=== PATIENT | female | born 1930 | race Caucasian/White ===

== ENCOUNTER 2016-05-28 10:20 | Inpatient (IN) | payer MEDICARE, OTHER ==
[~2016-05-28] VITALS: Ht 147.3 cm; Wt 43.3 kg
[~2016-05-28 10:20] MED LIST: CALC500C71 PO; CAR350T PO; CETI1TAB36 PO; FAM20T PO; LIS20T PO; PRE1T PO; SIMV10TA84 PO
[2016-05-28 10:55] LABS: Basophils # (auto) 0.1 uL; Basophils % (auto) 0.9 % (0.0-2.0); Eosinophils # (auto) 0.1 uL; Eosinophils % (auto) 0.7 % (0.0-7.0); Hematocrit 41.5 % (36.0-46.0); Hemoglobin 13.4 g/dL (12.2-16.2); Lymphocytes # (auto) 0.8 uL; Lymphocytes % (auto) 10.4 % (10.0-50.0); Mean Corpuscular Hemoglobin 29.5 pg (28.0-32.0); Mean Corpuscular Hgb Conc. 32.2 g/dL (32.0-36.0); Mean Corpuscular Volume 91.5 fL (80.0-100.0); Mean Platelet Volume 10.3 fL (7.4-10.4); Monocytes # (auto) 0.6 uL; Monocytes % (auto) 7.7 % (0.0-12.0); Neutrophils % (auto) 80.3 % (37.0-80.0); Platelet Count (auto) 242 10^3/uL (140-450); Red Cell Distribution Width 13.1 % (11.6-16.0); White Blood Cell 7.5 10^3/uL (4.4-10.8)
[2016-05-28 11:19] LABS: Albumin 3.9 g/dL (3.4-5.0); BUN/Creatinine Ratio 16.5; Bilirubin, Total 0.4 mg/dL (0.2-1.0); Magnesium 2.3 mg/dL (1.6-2.6); Potassium 4.9 mmol/L (3.5-5.1); Total Protein 6.8 g/dL (6.4-8.2)
[2016-05-28] MEDS ORDERED: ONDANSETRON HCL 4 MG/2 ML VIAL IV ONE (11:30)
[2016-05-28] MEDS ORDERED: MORPHINE SULF INJ 2 MG/ML SYRINGE 1ML IV ONE (11:30)
[2016-05-28] MEDS: SODIUM CHLORIDE 0.9% 1,000 ML IV SCH (12:34)
[2016-05-28] MEDS ORDERED: LACTULOSE 20Gm/30ML SOLN PO PRN (12:45)
[2016-05-28] MEDS ORDERED: ACETAMINOPHEN 500 MG TAB PO PRN (12:45)
[2016-05-28] MEDS ORDERED: LORazepam 0.5 MG TAB PO PRN (12:45)
[2016-05-28] MEDS ORDERED: MORPHINE SULF INJ 2 MG/ML SYRINGE 1ML IV PRN ×2 (12:45)
[2016-05-28] MEDS ORDERED: TEMAZEPAM 15 MG CAP PO PRN (12:45)
[2016-05-28] MEDS ORDERED: NITROGLYCERIN 0.4 MG SL TAB SL PRN (12:45)
[2016-05-28] MEDS ORDERED: ONDANSETRON HCL 4 MG/2 ML VIAL IV PRN (12:45)
[2016-05-28] MEDS: ENOXAPARIN SOD 30 MG/0.3 ML SYRINGE SC SCH (13:11)
[2016-05-28] MEDS: ASPirin 81 mg TAB PO SCH (13:11)
[2016-05-28] MEDS: HYDROcodone-ACET 5/325MG TAB PO PRN ×2 (13:12→21:12)
[2016-05-28 13:39] LABS: Urine RBC None Seen /hpf (0 - 4)
[2016-05-28 13:48] LABS: Urine Bilirubin Negative (Negative); Urine Blood Negative /uL (Negative); Urine Color Colorless (Yellow); Urine Glucose Normal (Normal); Urine Ketone Negative (Negative); Urine Nitrite Negative (Negative); Urine Squamous Epithelial Cell FEW /hpf (<5); Urine Urobilinogen Normal (Negative)
[2016-05-28 17:40] VITALS: BP 142/72
[2016-05-28] MEDS ORDERED: LORazepam 2MG/ML-1ML VIAL IV PRN (17:45)
[2016-05-28] MEDS ORDERED: MULTTAB99 PO (17:46)
[2016-05-28] MEDS ORDERED: ESOM40CA39 PO (17:46)
[2016-05-28] MEDS ORDERED: ACET500C PO (17:47)
[2016-05-28] MEDS: ATORVASTATIN 20 MG TAB PO SCH (21:12)
[2016-05-28 21:43] VITALS: BP 157/73
[2016-05-29] MEDS: SODIUM CHLORIDE 0.9% 1,000 ML IV SCH ×2 (01:04→03:55)
[2016-05-29] MEDS: HYDROcodone-ACET 5/325MG TAB PO PRN ×2 (03:07→21:11)
[2016-05-29 05:00] VITALS: BP 130/48
[2016-05-29 09:00] VITALS: BP 148/60
[2016-05-29] MEDS ORDERED: DEXTROSE (50%) 50ML SYRG IV PRN (09:30)
[2016-05-29] MEDS: ASPirin 81 mg TAB PO SCH (11:05)
[2016-05-29] MEDS: ENOXAPARIN SOD 30 MG/0.3 ML SYRINGE SC SCH (11:05)
[2016-05-29] MEDS: ACCU-CHEK COMFORT CURVE STRIP VI SCH ×3 (11:30→21:41)
[2016-05-29] MEDS: InsuLIN REG 1unit/0.01ml Soln (100units/ml) SC SCH ×3 (11:30→21:41)
[2016-05-29] MEDS ORDERED: MULTIPLE VITAMIN TAB PO SCH (12:00)
[2016-05-29 12:14] VITALS: BP 190/78
[2016-05-29] MEDS: LISINOPRIL 20 MG TAB PO SCH ×2 (12:17→21:11)
[2016-05-29] MEDS: cloNIDine HCL 0.1 MG TAB PO PRN (12:18)
[2016-05-29 16:25] LABS: Temperature: 22.1 C (20.0-25.0)
[2016-05-29 17:12] VITALS: BP 135/59
[2016-05-29] MEDS: ATORVASTATIN 20 MG TAB PO SCH (21:10)
[2016-05-29 22:00] VITALS: BP 146/62
[2016-05-30] MEDS: SODIUM CHLORIDE 0.9% 1,000 ML IV SCH (04:00)
[2016-05-30 05:55] VITALS: BP 152/62
[2016-05-30] MEDS: ACCU-CHEK COMFORT CURVE STRIP VI SCH (06:13)
[2016-05-30] MEDS: InsuLIN REG 1unit/0.01ml Soln (100units/ml) SC SCH (06:14)
[2016-05-30 06:17] LABS: Basophils # (auto) 0 uL; Basophils % (auto) 0.4 % (0.0-2.0); Eosinophils # (auto) 0.3 uL; Eosinophils % (auto) 4.9 % (0.0-7.0); Hematocrit 33.2 % (36.0-46.0); Hemoglobin 10.8 g/dL (12.2-16.2); Lymphocytes # (auto) 1.1 uL; Lymphocytes % (auto) 16.5 % (10.0-50.0); Mean Corpuscular Hgb Conc. 32.6 g/dL (32.0-36.0); Mean Corpuscular Volume 91.8 fL (80.0-100.0); Mean Platelet Volume 10.5 fL (7.4-10.4); Monocytes # (auto) 0.8 uL; Monocytes % (auto) 11.6 % (0.0-12.0); Neutrophils # (auto) 4.3 uL; Neutrophils % (auto) 66.6 % (37.0-80.0); Platelet Count (auto) 174 10^3/uL (140-450); Red Cell Distribution Width 13.4 % (11.6-16.0); White Blood Cell 6.5 10^3/uL (4.4-10.8)
[2016-05-30 06:45] LABS: Albumin 2.9 g/dL (3.4-5.0); BUN/Creatinine Ratio 20.6; Bilirubin, Total 0.4 mg/dL (0.2-1.0); Calcium 8.5 mg/dL (8.5-10.1); Potassium 4.6 mmol/L (3.5-5.1); Total Protein 5.5 g/dL (6.4-8.2)
[2016-05-30] MEDS: ASPirin 81 mg TAB PO SCH (10:35)
[2016-05-30] MEDS: LISINOPRIL 20 MG TAB PO SCH (10:35)
[2016-05-30] MEDS: ENOXAPARIN SOD 30 MG/0.3 ML SYRINGE SC SCH (10:35)
[2016-05-30 11:18] VITALS: BP 142/72
[2016-05-30] MEDS: cloNIDine HCL 0.1 MG TAB PO PRN (11:34)
[2016-05-31 06:06] LABS: Thyroxine (T4) 5.8 ug/dL (4.5-12.0)
== END 2016-05-30 12:41 | disposition home or self-care (01) | DRG 69 ==
LOC: EDBD 10:20 → ER 10:24 → TELE 10:25 → TELE-CENTR 16:02
PROVIDERS: ADMIT Internal Medicine; ATTEND Internal Medicine
DX: G45.9 Transient cerebral ischemic attack, unspecified (principal); E43 Unspecified severe protein-calorie malnutrition; I25.10 Atherosclerotic heart disease of native coronary artery without angina pectoris; K21.9 Gastro-esophageal reflux disease without esophagitis; S40.011A Contusion of right shoulder, initial encounter; D63.8 Anemia in other chronic diseases classified elsewhere; E11.22 Type 2 diabetes mellitus with diabetic chronic kidney disease; E78.5 Hyperlipidemia, unspecified; E03.9 Hypothyroidism, unspecified; I73.9 Peripheral vascular disease, unspecified; J44.9 Chronic obstructive pulmonary disease, unspecified; N18.3 Chronic kidney disease, stage 3 (moderate); S09.90XA Unspecified injury of head, initial encounter; W19.XXXA Unspecified fall, initial encounter; I12.9 Hypertensive chronic kidney disease with stage 1 through stage 4 chronic kidney disease, or unspecified chronic kidney disease; Y99.8 Other external cause status; Z88.1 Allergy status to other antibiotic agents; Z79.899 Other long term (current) drug therapy; I25.2 Old myocardial infarction; Z80.0 Family history of malignant neoplasm of digestive organs; Z82.3 Family history of stroke; Z82.49 Family history of ischemic heart disease and other diseases of the circulatory system; Z85.038 Personal history of other malignant neoplasm of large intestine; Y93.89 Activity, other specified; Y92.89 Other specified places as the place of occurrence of the external cause; Z98.49 Cataract extraction status, unspecified eye; Z98.890 Other specified postprocedural states; Z68.20 Body mass index [BMI] 20.0-20.9, adult; Z88.0 Allergy status to penicillin
CPT/HCPCS: 36415; 70450; 70551; 72131; 80053; 81001; 82550; 82607; 82746; 82962; 83036; 83735; 84443; 84484; 85025; 85049; 85652; 93005; 93306; 93886; 94761; 95819; 96374; 96375; J2405

== ENCOUNTER → 2016-06-12 | Outpatient (CLI) | payer MEDICARE, OTHER ==
[~2016-06-12] MED LIST changes: +ACET500C PO; +CETI5SOL4 PO; +ESOM40CA39 PO; -FAM20T PO; +MULTTAB99 PO
[2016-06-12 09:15] VITALS: BP 135/61
[2016-06-12 09:45] VITALS: BP 137/47
[2016-06-12 12:29] LABS: Basophils # (auto) 0 uL; Basophils % (auto) 0.3 % (0.0-2.0); Eosinophils # (auto) 0 uL; Eosinophils % (auto) 0.5 % (0.0-7.0); Hematocrit 40.5 % (36.0-46.0); Hemoglobin 12.7 g/dL (12.2-16.2); Lymphocytes # (auto) 0.8 uL; Lymphocytes % (auto) 11.6 % (10.0-50.0); Mean Corpuscular Hemoglobin 28.9 pg (28.0-32.0); Mean Corpuscular Hgb Conc. 31.4 g/dL (32.0-36.0); Mean Corpuscular Volume 92.1 fL (80.0-100.0); Mean Platelet Volume 10.5 fL (7.4-10.4); Monocytes # (auto) 0.5 uL; Monocytes % (auto) 8.2 % (0.0-12.0); Neutrophils # (auto) 5.2 uL; Neutrophils % (auto) 79.4 % (37.0-80.0); Platelet Count (auto) 284 10^3/uL (140-450); Red Cell Distribution Width 13.4 % (11.6-16.0); White Blood Cell 6.6 10^3/uL (4.4-10.8)
[2016-06-12 12:43] LABS: BUN/Creatinine Ratio 20.9; Potassium 4.1 mmol/L (3.5-5.1)
[2016-06-12 13:13] LABS: INR 1.04 (0.9-1.15); Partial Thromboplastin Time 26.1 sec (22.64-33.71); Prothrombin Time 10.7 sec (9.37-12.3)
== END | disposition home or self-care (01) ==
LOC: Rad HDHVI 09:01
PROVIDERS: ATTEND Internal Medicine Cardiovascular Disease
DX: I10 Essential (primary) hypertension (principal); D64.9 Anemia, unspecified; R79.1 Abnormal coagulation profile
CPT/HCPCS: 36415; 71020; 80048; 85025; 85610; 85730; 93005; G0463

== ENCOUNTER 2016-07-03 11:29 | Emergency (ER) | payer MEDICARE, OTHER ==
[~2016-07-03] VITALS: Ht 147.3 cm; Wt 41.0 kg
[~2016-07-03 11:29] MED LIST changes: -CETI1TAB36 PO
[2016-07-03 15:10] LABS: Urine RBC 25161 /hpf (0 - 4)
[2016-07-03 15:24] LABS: Urine Color Red (Yellow)
[2016-07-03 16:48] LABS: Urine Bilirubin Negative (Negative); Urine Color Red (Yellow); Urine Glucose Normal (Normal); Urine Ketone TRACE (Negative); Urine Nitrite Negative (Negative); Urine RBC 1088 /hpf (0 - 4); Urine Urobilinogen Normal (Negative); Urine WBC Clumps PRESENT /hpf (None Seen); Urine pH 6.5 (5.0-8.0)
[2016-07-03 17:00] LABS: Urine Blood 3+ /uL (Negative)
[2016-07-03] MEDS ORDERED: ACETAMINOPHEN 325 MG TAB PO ONE (17:15)
[2016-07-03 17:23] VITALS: BP 153/63
== END 2016-07-03 17:41 | disposition home or self-care (01) ==
LOC: ER 11:33
DX: N39.0 Urinary tract infection, site not specified (principal); E78.5 Hyperlipidemia, unspecified; I25.2 Old myocardial infarction; I10 Essential (primary) hypertension; K21.9 Gastro-esophageal reflux disease without esophagitis; I48.91 Unspecified atrial fibrillation; I20.9 Angina pectoris, unspecified; Z86.73 Personal history of transient ischemic attack (TIA), and cerebral infarction without residual deficits; Z88.0 Allergy status to penicillin; Z88.1 Allergy status to other antibiotic agents
CPT/HCPCS: 81001

== ENCOUNTER → 2016-07-05 | Outpatient (CLI) | payer MEDICARE, OTHER | END | disposition home or self-care (01) | LOC: LAB 12:14 | PROVIDERS: ATTEND Internal Medicine | DX: E03.9 Hypothyroidism, unspecified (principal) | CPT/HCPCS: 36415; 84439; 84443; 84480 ==

== ENCOUNTER → 2016-07-26 | Outpatient (CLI) | payer MEDICARE, OTHER | END | disposition home or self-care (01) | LOC: Rad HDHVI 09:04 | PROVIDERS: ATTEND Internal Medicine Cardiovascular Disease | DX: I10 Essential (primary) hypertension (principal); I73.9 Peripheral vascular disease, unspecified | CPT/HCPCS: 93926 ==

== ENCOUNTER → 2016-09-06 | Outpatient (CLI) | payer MEDICARE ==
[~2016-09-06] VITALS: Ht 147.3 cm; Wt 41.3 kg
[~2016-09-06] MED LIST changes: +CLOP75TA41 PO; +PANT40TA2 PO
[2016-09-06 09:20] VITALS: BP 157/62
[2016-09-06 09:50] VITALS: BP 154/65
[2016-09-06 12:24] LABS: Basophils # (auto) 0 uL; Basophils % (auto) 0.2 % (0.0-2.0); Eosinophils # (auto) 0 uL; Eosinophils % (auto) 0.7 % (0.0-7.0); Hematocrit 38.6 % (36.0-46.0); Hemoglobin 12.5 g/dL (12.2-16.2); Lymphocytes # (auto) 0.7 uL; Lymphocytes % (auto) 9.8 % (10.0-50.0); Mean Corpuscular Hemoglobin 29.3 pg (28.0-32.0); Mean Corpuscular Hgb Conc. 32.5 g/dL (32.0-36.0); Mean Corpuscular Volume 90.1 fL (80.0-100.0); Mean Platelet Volume 10.3 fL (7.4-10.4); Monocytes # (auto) 0.6 uL; Monocytes % (auto) 9.3 % (0.0-12.0); Neutrophils # (auto) 5.4 uL; Platelet Count (auto) 258 10^3/uL (140-450); Red Cell Distribution Width 13.9 % (11.6-16.0); White Blood Cell 6.8 10^3/uL (4.4-10.8)
[2016-09-06 12:36] LABS: INR 0.99 (0.9-1.15); Partial Thromboplastin Time 27.1 sec (22.64-33.71); Prothrombin Time 10.7 sec (9.37-12.3)
[2016-09-06 12:53] LABS: BUN/Creatinine Ratio 24.5; Calcium 8.5 mg/dL (8.5-10.1); Potassium 4.2 mmol/L (3.5-5.1)
== END | disposition home or self-care (01) ==
LOC: Rad HDHVI 09:07
PROVIDERS: ATTEND Internal Medicine Cardiovascular Disease
DX: I10 Essential (primary) hypertension (principal); D64.9 Anemia, unspecified; R79.1 Abnormal coagulation profile; Z01.812 Encounter for preprocedural laboratory examination
CPT/HCPCS: 36415; 71020; 80048; 85025; 85610; 85730; 93005; G0463

== ENCOUNTER → 2016-09-26 | Outpatient (CLI) | payer MEDICARE ==
[~2016-09-26] MED LIST changes: -CAR350T PO; -ESOM40CA39 PO
== END | disposition home or self-care (01) ==
LOC: Rad HDHVI 13:29
PROVIDERS: ATTEND Internal Medicine Cardiovascular Disease
DX: I73.9 Peripheral vascular disease, unspecified (principal); I99.8 Other disorder of circulatory system
CPT/HCPCS: 93926

== ENCOUNTER → 2016-12-11 | Outpatient (CLI) | payer MEDICARE ==
[~2016-12-11] MED LIST changes: +CETI1SYP6 PO; -CETI5SOL4 PO
[2016-12-11 12:54] LABS: Urine Bilirubin Negative (Negative); Urine Blood Negative /uL (Negative); Urine Color Yellow (Yellow); Urine Glucose Normal (Normal); Urine Ketone Negative (Negative); Urine Nitrite Negative (Negative); Urine RBC 1 /hpf (0 - 4); Urine Squamous Epithelial Cell FEW /hpf (<5); Urine Urobilinogen Normal (Negative); Urine pH 5.5 (5.0-8.0)
== END | disposition home or self-care (01) ==
LOC: LAB 12:23
PROVIDERS: ATTEND Internal Medicine
DX: R31.9 Hematuria, unspecified (principal); Z87.440 Personal history of urinary (tract) infections
CPT/HCPCS: 81001; 87086

== ENCOUNTER → 2017-04-24 | Outpatient (CLI) | payer MEDICARE ==
[2017-04-24 11:10] LABS: Basophils # (auto) 0 uL; Basophils % (auto) 0.5 % (0.0-2.0); Eosinophils # (auto) 0.1 uL; Eosinophils % (auto) 0.7 % (0.0-7.0); Hematocrit 40.5 % (36.0-46.0); Hemoglobin 13.3 g/dL (12.2-16.2); Lymphocytes # (auto) 0.8 uL; Lymphocytes % (auto) 11.5 % (10.0-50.0); Mean Corpuscular Hgb Conc. 32.8 g/dL (32.0-36.0); Mean Corpuscular Volume 91.5 fL (80.0-100.0); Mean Platelet Volume 9.4 fL (6.9-10.8); Monocytes # (auto) 0.7 uL; Monocytes % (auto) 9.3 % (0.0-12.0); Neutrophils # (auto) 5.6 uL; Platelet Count (auto) 233 10^3/uL (140-450); Red Cell Distribution Width 13.7 % (11.8-14.3); White Blood Cell 7.2 10^3/uL (4.4-10.8)
[2017-04-24 12:32] LABS: Albumin 3.9 g/dL (3.4-5.0); BUN/Creatinine Ratio 27.4; Bilirubin, Total 0.5 mg/dL (0.2-1.0); Potassium 4.3 mmol/L (3.5-5.1); Total Protein 7.1 g/dL (6.4-8.2)
== END | disposition home or self-care (01) ==
LOC: LAB 10:46
DX: I10 Essential (primary) hypertension (principal); M06.9 Rheumatoid arthritis, unspecified; E78.00 Pure hypercholesterolemia, unspecified; D64.9 Anemia, unspecified; I70.0 Atherosclerosis of aorta; Z79.899 Other long term (current) drug therapy
CPT/HCPCS: 36415; 80053; 80061; 82306; 84443; 85025; 85652

== ENCOUNTER → 2017-05-31 | Outpatient (CLI) | payer MEDICARE ==
[~2017-05-31] VITALS: Ht 148.6 cm; Wt 39.0 kg
[~2017-05-31] MED LIST changes: +ADENOSINE 33 MG in GIVE UN-DILUTED 0 ML IV ONE; +ADENOSINE 90 MG/30 ML INJ IV ONE
== END | disposition home or self-care (01) ==
LOC: Rad HDHVI 13:05
PROVIDERS: ATTEND Internal Medicine Cardiovascular Disease
DX: J44.9 Chronic obstructive pulmonary disease, unspecified (principal); M25.462 Effusion, left knee
CPT/HCPCS: 78452; 93005; 93306; 96374; 96375; A9500; J0153

== ENCOUNTER → 2017-09-14 | Outpatient (CLI) | payer MEDICARE ==
[~2017-09-14] MED LIST changes: -ADENOSINE 33 MG in GIVE UN-DILUTED 0 ML IV ONE; -ADENOSINE 90 MG/30 ML INJ IV ONE
[2017-09-14 11:30] LABS: Basophils # (auto) 0 uL; Basophils % (auto) 0.6 % (0.0-2.0); Eosinophils # (auto) 0.1 uL; Eosinophils % (auto) 1.5 % (0.0-7.0); Hemoglobin 13.2 g/dL (12.2-16.2); Lymphocytes # (auto) 0.8 uL; Lymphocytes % (auto) 11.5 % (10.0-50.0); Mean Corpuscular Hemoglobin 30.3 pg (28.0-32.0); Mean Corpuscular Hgb Conc. 32.9 g/dL (32.0-36.0); Monocytes # (auto) 0.7 uL; Monocytes % (auto) 9.7 % (0.0-12.0); Neutrophils # (auto) 5.2 uL; Neutrophils % (auto) 76.7 % (37.0-80.0); Platelet Count (auto) 240 10^3/uL (140-450); Red Blood Cells 4.35 10^6/uL (4.0-5.20); Red Cell Distribution Width 12.7 % (11.8-14.3); White Blood Cell 6.8 10^3/uL (4.4-10.8)
[2017-09-14 12:06] LABS: Albumin 3.8 g/dL (3.4-5.0); BUN/Creatinine Ratio 21.7; Bilirubin, Total 0.7 mg/dL (0.2-1.0); Calcium 9.4 mg/dL (8.5-10.1); Total Protein 7.1 g/dL (6.4-8.2)
== END | disposition home or self-care (01) ==
LOC: LAB 10:34
PROVIDERS: ATTEND Internal Medicine
DX: Z00.01 Encounter for general adult medical examination with abnormal findings (principal); Z12.11 Encounter for screening for malignant neoplasm of colon; E78.5 Hyperlipidemia, unspecified; I10 Essential (primary) hypertension; M06.9 Rheumatoid arthritis, unspecified; E78.00 Pure hypercholesterolemia, unspecified; Z79.899 Other long term (current) drug therapy
CPT/HCPCS: 36415; 80053; 80061; 82270; 82306; 84443; 85025

== ENCOUNTER → 2018-02-14 | Outpatient (CLI) | payer MEDICARE ==
[2018-02-14 11:10] LABS: Albumin 3.5 g/dL (3.4-5.0); Calcium 8.9 mg/dL (8.5-10.1); Potassium 4.7 mmol/L (3.5-5.1)
[2018-02-14 11:12] LABS: BUN/Creatinine Ratio 19.8
[2018-02-14 11:15] LABS: Bilirubin, Total 0.7 mg/dL (0.2-1.0); Total Protein 7.3 g/dL (6.4-8.2)
== END | disposition home or self-care (01) ==
LOC: LAB 10:04
PROVIDERS: ATTEND Internal Medicine
DX: I12.9 Hypertensive chronic kidney disease with stage 1 through stage 4 chronic kidney disease, or unspecified chronic kidney disease (principal); N18.3 Chronic kidney disease, stage 3 (moderate); E78.5 Hyperlipidemia, unspecified
CPT/HCPCS: 36415; 80053

== ENCOUNTER → 2018-02-25 | Outpatient (CLI) | payer MEDICARE ==
[2018-02-25 12:41] LABS: Basophils # (auto) 0 uL; Basophils % (auto) 0.3 % (0.0-2.0); Eosinophils # (auto) 0 uL; Eosinophils % (auto) 0.2 % (0.0-7.0); Hematocrit 38.3 % (36.0-46.0); Hemoglobin 12.8 g/dL (12.2-16.2); Lymphocytes # (auto) 0.8 uL; Lymphocytes % (auto) 7.7 % (10.0-50.0); Mean Corpuscular Hemoglobin 31.4 pg (28.0-32.0); Mean Corpuscular Hgb Conc. 33.5 g/dL (32.0-36.0); Mean Corpuscular Volume 93.6 fL (80.0-100.0); Neutrophils % (auto) 81.8 % (37.0-80.0); Nucleated Red Blood Cells % 0.1 %; Platelet Count (auto) 232 10^3/uL (140-450); Red Cell Distribution Width 13.3 % (11.8-14.3); White Blood Cell 9.8 10^3/uL (4.4-10.8)
[2018-02-25 12:42] LABS: Potassium 4.3 mmol/L (3.5-5.1)
[2018-02-25 12:51] LABS: Albumin 3.8 g/dL (3.4-5.0); BUN/Creatinine Ratio 21.6; Bilirubin, Direct 0.3 mg/dL (0-0.2); Bilirubin, Total 1.2 mg/dL (0.2-1.0); Calcium 9.5 mg/dL (8.5-10.1); Total Protein 7.9 g/dL (6.4-8.2)
== END | disposition home or self-care (01) ==
LOC: LAB 09:07
PROVIDERS: ATTEND Internal Medicine Cardiovascular Disease
DX: E78.5 Hyperlipidemia, unspecified (principal); I10 Essential (primary) hypertension; D64.9 Anemia, unspecified; K74.1 Hepatic sclerosis
CPT/HCPCS: 36415; 80048; 80061; 80076; 85025

== ENCOUNTER → 2018-03-27 | Outpatient (CLI) | payer MEDICARE ==
[~2018-03-27] MED LIST changes: +CLOP75TA28 PO
== END | disposition home or self-care (01) ==
LOC: Rad HDHVI 11:00
PROVIDERS: ATTEND Internal Medicine Cardiovascular Disease
DX: I74.3 Embolism and thrombosis of arteries of the lower extremities (principal); I70.8 Atherosclerosis of other arteries; I73.9 Peripheral vascular disease, unspecified
CPT/HCPCS: 93926

== ENCOUNTER → 2018-06-25 | Outpatient (CLI) | payer MEDICARE ==
[~2018-06-25] MED LIST changes: -CETI1SYP6 PO; -CLOP75TA41 PO
[2018-06-25 13:53] LABS: Albumin 3.7 g/dL (3.4-5.0); BUN/Creatinine Ratio 27.5; Calcium 8.5 mg/dL (8.5-10.1); Potassium 5.1 mmol/L (3.5-5.1)
[2018-06-25 13:55] LABS: Bilirubin, Total 0.3 mg/dL (0.2-1.0); Total Protein 6.9 g/dL (6.4-8.2)
== END | disposition home or self-care (01) ==
LOC: LAB 13:19
PROVIDERS: ATTEND Internal Medicine
DX: I13.0 Hypertensive heart and chronic kidney disease with heart failure and stage 1 through stage 4 chronic kidney disease, or unspecified chronic kidney disease (principal); I50.9 Heart failure, unspecified; N18.3 Chronic kidney disease, stage 3 (moderate)
CPT/HCPCS: 36415; 80053

== ENCOUNTER → 2018-07-25 | Outpatient (CLI) | payer MEDICARE ==
[2018-07-25 12:55] LABS: BUN/Creatinine Ratio 24.7; Calcium 8.7 mg/dL (8.5-10.1); Potassium 3.9 mmol/L (3.5-5.1)
== END | disposition home or self-care (01) ==
LOC: LAB 11:57
PROVIDERS: ATTEND Internal Medicine
DX: I13.0 Hypertensive heart and chronic kidney disease with heart failure and stage 1 through stage 4 chronic kidney disease, or unspecified chronic kidney disease (principal); I50.32 Chronic diastolic (congestive) heart failure; N18.3 Chronic kidney disease, stage 3 (moderate)
CPT/HCPCS: 36415; 80048

== ENCOUNTER → 2018-09-18 | Outpatient (CLI) | payer MEDICARE | END | disposition home or self-care (01) | LOC: Rad HDHVI 09:06 | PROVIDERS: ATTEND Internal Medicine Cardiovascular Disease | DX: R00.2 Palpitations (principal); I11.0 Hypertensive heart disease with heart failure; I50.32 Chronic diastolic (congestive) heart failure | CPT/HCPCS: 93306 ==

== ENCOUNTER → 2018-10-22 | Outpatient (CLI) | payer MEDICARE ==
[~2018-10-22] VITALS: Ht 149.9 cm; Wt 39.9 kg
[~2018-10-22] MED LIST changes: +ADENOSINE 34 MG in GIVE UN-DILUTED 0 ML IV ONE; +ADENOSINE 90 MG/30 ML INJ IV ONE; +cloNIDine HCL 0.1 MG TAB ONE
== END | disposition home or self-care (01) ==
LOC: Rad HDHVI 13:20
PROVIDERS: ATTEND Internal Medicine Cardiovascular Disease
DX: I11.0 Hypertensive heart disease with heart failure (principal); I50.33 Acute on chronic diastolic (congestive) heart failure; E78.5 Hyperlipidemia, unspecified; R00.2 Palpitations; N28.9 Disorder of kidney and ureter, unspecified
CPT/HCPCS: 78452; 93005; 96374; 96375; A9500; J0153

== ENCOUNTER → 2019-01-22 | Outpatient (CLI) | payer MEDICARE ==
[~2019-01-22] MED LIST changes: -ADENOSINE 34 MG in GIVE UN-DILUTED 0 ML IV ONE; -ADENOSINE 90 MG/30 ML INJ IV ONE; -cloNIDine HCL 0.1 MG TAB ONE
[2019-01-22 15:54] LABS: Basophils # (auto) 0.1 uL; Basophils % (auto) 1.1 % (0.0-2.0); Eosinophils # (auto) 0.2 uL; Eosinophils % (auto) 2.3 % (0.0-7.0); Hematocrit 40.2 % (36.0-46.0); Hemoglobin 13.6 g/dL (12.2-16.2); Lymphocytes # (auto) 0.9 uL; Mean Corpuscular Hemoglobin 31.1 pg (28.0-32.0); Mean Corpuscular Hgb Conc. 33.8 g/dL (32.0-36.0); Monocytes # (auto) 0.7 uL; Monocytes % (auto) 10.2 % (0.0-12.0); Neutrophils # (auto) 5.2 uL; Neutrophils % (auto) 73.4 % (37.0-80.0); Nucleated Red Blood Cells % 0.1 %; Platelet Count (auto) 196 10^3/uL (140-450); Red Blood Cells 4.37 10^6/uL (4.0-5.20); Red Cell Distribution Width 14.2 % (11.8-14.3); White Blood Cell 7.1 10^3/uL (4.4-10.8)
== END | disposition home or self-care (01) ==
LOC: LAB 15:30
PROVIDERS: ATTEND Internal Medicine
DX: M06.9 Rheumatoid arthritis, unspecified (principal); I25.10 Atherosclerotic heart disease of native coronary artery without angina pectoris; I13.0 Hypertensive heart and chronic kidney disease with heart failure and stage 1 through stage 4 chronic kidney disease, or unspecified chronic kidney disease; N18.3 Chronic kidney disease, stage 3 (moderate); I50.33 Acute on chronic diastolic (congestive) heart failure
CPT/HCPCS: 36415; 85025; 85652; 86038; 86141; 86200; 86431

== ENCOUNTER → 2019-09-18 | Outpatient (CLI) | payer MEDICARE ==
[2019-09-18 10:42] LABS: Basophils # (auto) 0 10 ^3/uL (0-0.2); Basophils % (auto) 0.6 % (0.0-2.0); Eosinophils # (auto) 0.2 10 ^3/uL (0-0.8); Eosinophils % (auto) 2.8 % (0.0-7.0); Hematocrit 42.2 % (36.0-46.0); Hemoglobin 13.9 g/dL (12.2-16.2); Lymphocytes % (auto) 14.5 % (10.0-50.0); Mean Corpuscular Hgb Conc. 32.8 g/dL (32.0-36.0); Mean Corpuscular Volume 94.5 fL (80.0-100.0); Monocytes # (auto) 0.8 10 ^3/uL (0-1.3); Monocytes % (auto) 11.4 % (0.0-12.0); Neutrophils # (auto) 4.9 10 ^3/uL (1.6-8.6); Neutrophils % (auto) 70.7 % (37.0-80.0); Platelet Count (auto) 187 10^3/uL (140-450); Red Blood Cells 4.47 10^6/uL (4.0-5.20); Red Cell Distribution Width 13.8 % (11.8-14.3)
[2019-09-18 10:58] LABS: Albumin 3.9 g/dL (3.4-5.0); Potassium 3.8 mmol/L (3.5-5.1)
[2019-09-18 11:02] LABS: BUN/Creatinine Ratio 26.8; Bilirubin, Total 0.8 mg/dL (0.2-1.0); Total Protein 7.5 g/dL (6.4-8.2)
== END | disposition home or self-care (01) ==
LOC: LAB 10:16
PROVIDERS: ATTEND Internal Medicine
DX: I10 Essential (primary) hypertension (principal); E78.5 Hyperlipidemia, unspecified; E13.9 Other specified diabetes mellitus without complications; R57.0 Cardiogenic shock; Z12.11 Encounter for screening for malignant neoplasm of colon; E55.9 Vitamin D deficiency, unspecified
CPT/HCPCS: 36415; 80053; 80061; 82306; 84443; 85025; 85652

== ENCOUNTER → 2019-09-24 | Outpatient (CLI) | payer MEDICARE ==
[2019-09-24 14:36] LABS: Free T3 2.12 pg/mL (2.3-4.2); Free T4 (Free Thyroxine) 1.13 ng/dL (0.89-1.76)
== END | disposition home or self-care (01) ==
LOC: LAB 13:56
PROVIDERS: ATTEND Internal Medicine
DX: E78.5 Hyperlipidemia, unspecified (principal); E55.9 Vitamin D deficiency, unspecified; R59.0 Localized enlarged lymph nodes; I10 Essential (primary) hypertension; Z12.11 Encounter for screening for malignant neoplasm of colon; Z00.00 Encounter for general adult medical examination without abnormal findings
CPT/HCPCS: 82274; 84439; 84481

== ENCOUNTER 2019-11-07 13:28 | Emergency (ER) | payer MEDICARE ==
[~2019-11-07] VITALS: Ht 157.5 cm; Wt 45.4 kg
[2019-11-07 14:40] LABS: Basophils # (auto) 0 10 ^3/uL (0-0.2); Basophils % (auto) 0.4 % (0.0-2.0); Eosinophils # (auto) 0 10 ^3/uL (0-0.8); Eosinophils % (auto) 0.5 % (0.0-7.0); Hematocrit 40.3 % (36.0-46.0); Hemoglobin 13.6 g/dL (12.2-16.2); Lymphocytes # (auto) 0.4 10 ^3/uL (0.4-5.4); Lymphocytes % (auto) 5.4 % (10.0-50.0); Mean Corpuscular Hgb Conc. 33.6 g/dL (32.0-36.0); Mean Corpuscular Volume 95.2 fL (80.0-100.0); Monocytes # (auto) 0.5 10 ^3/uL (0-1.3); Monocytes % (auto) 7.1 % (0.0-12.0); Neutrophils # (auto) 5.7 10 ^3/uL (1.6-8.6); Neutrophils % (auto) 86.6 % (37.0-80.0); Platelet Count (auto) 181 10^3/uL (140-450); Red Blood Cells 4.23 10^6/uL (4.0-5.20); Red Cell Distribution Width 13.7 % (11.8-14.3); White Blood Cell 6.6 10^3/uL (4.4-10.8)
[2019-11-07 15:01] LABS: Albumin 3.6 g/dL (3.4-5.0); BUN/Creatinine Ratio 21.7; Calcium 8.8 mg/dL (8.5-10.1); Potassium 4.3 mmol/L (3.5-5.1)
[2019-11-07 15:05] LABS: Bilirubin, Total 0.4 mg/dL (0.2-1.0); Total Protein 6.8 g/dL (6.4-8.2)
[2019-11-07 16:13] VITALS: BP 192/69
[2019-12-26] MEDS ORDERED: CETI1TAB36 PO (12:41)
[2019-12-26] MEDS ORDERED: AML5T PO (12:41)
[2019-12-26] MEDS ORDERED: CALCTAB62 PO (12:41)
== END 2019-11-07 16:51 | disposition home or self-care (01) ==
LOC: EDBD 13:28 → ER 13:28
DX: I16.0 Hypertensive urgency (principal); I25.10 Atherosclerotic heart disease of native coronary artery without angina pectoris; K21.9 Gastro-esophageal reflux disease without esophagitis; E78.5 Hyperlipidemia, unspecified; I10 Essential (primary) hypertension; I25.2 Old myocardial infarction; R42 Dizziness and giddiness
CPT/HCPCS: 36415; 70450; 80053; 84484; 85025; 93005

== ENCOUNTER → 2019-12-18 | Outpatient (CLI) | payer MEDICARE ==
[~2019-12-18] MED LIST changes: +AML5T PO; +CALCTAB62 PO; +CETI1TAB36 PO
== END | disposition home or self-care (01) ==
LOC: Rad HDHVI 13:04
PROVIDERS: ATTEND Internal Medicine Cardiovascular Disease
DX: I50.33 Acute on chronic diastolic (congestive) heart failure (principal); R06.02 Shortness of breath; R00.2 Palpitations
CPT/HCPCS: 93306

== ENCOUNTER → 2019-12-26 | Outpatient (CLI) | payer MEDICARE ==
[2019-12-26 10:20] VITALS: BP 135/71
--- NOTE | 2019-12-26 10:20 | NUR ---
Patient into clinic for scheduled preop appt, aaox4, ambulatory, breathing even and unlabored.
[2019-12-26 10:48] VITALS: BP 137/72
--- NOTE | 2019-12-26 10:48 | NUR ---
Pre-Op Discharge Summary: See e-MAR for any medications given for this visit. Pre-op orders received and carried out per MD of EKG, LABS and chest xrays. Patient given a copy of EKG with instructions to go to [facility] out patient for further follow up care.
[2019-12-26 11:59] LABS: Basophils # (auto) 0 10 ^3/uL (0-0.2); Basophils % (auto) 0.4 % (0.0-2.0); Eosinophils # (auto) 0.2 10 ^3/uL (0-0.8); Eosinophils % (auto) 2.2 % (0.0-7.0); Hematocrit 42.4 % (36.0-46.0); Lymphocytes # (auto) 0.6 10 ^3/uL (0.4-5.4); Lymphocytes % (auto) 7.4 % (10.0-50.0); Mean Corpuscular Hemoglobin 32.1 pg (28.0-32.0); Mean Corpuscular Hgb Conc. 33.1 g/dL (32.0-36.0); Mean Corpuscular Volume 96.9 fL (80.0-100.0); Monocytes # (auto) 0.8 10 ^3/uL (0-1.3); Monocytes % (auto) 9.4 % (0.0-12.0); Neutrophils # (auto) 6.5 10 ^3/uL (1.6-8.6); Neutrophils % (auto) 80.6 % (37.0-80.0); Platelet Count (auto) 208 10^3/uL (140-450); Red Blood Cells 4.38 10^6/uL (4.0-5.20); Red Cell Distribution Width 13.5 % (11.8-14.3); White Blood Cell 8.1 10^3/uL (4.4-10.8)
[2019-12-26 12:16] LABS: INR 0.98 (0.9-1.15); Partial Thromboplastin Time 24.7 sec (23.0-31.2)
[2019-12-26 12:19] LABS: Potassium 3.5 mmol/L (3.5-5.1)
== END | disposition home or self-care (01) ==
LOC: Rad HDHVI 10:03
PROVIDERS: ATTEND Internal Medicine Cardiovascular Disease
DX: Z01.812 Encounter for preprocedural laboratory examination (principal); J98.11 Atelectasis; I70.0 Atherosclerosis of aorta; I50.32 Chronic diastolic (congestive) heart failure
CPT/HCPCS: 36415; 71046; 80048; 85025; 85610; 85730; 93005; G0463

== ENCOUNTER → 2019-12-29 | Outpatient (CLI) | payer MEDICARE ==
[~2019-12-29] VITALS: Ht 30.5 cm; Wt 0.5 kg
[~2019-12-29] MED LIST changes: +ADENOSINE 90 MG/30 ML INJ IV ONE; +ADENOSINE IV ONE; -CALC500C71 PO; +GIVE UN DILUTED IV ONE; -LIS20T PO; +cloNIDine HCL 0.1 MG TAB ONE
== END | disposition home or self-care (01) ==
LOC: Rad HDHVI 09:32
PROVIDERS: ATTEND Internal Medicine Cardiovascular Disease
DX: I25.10 Atherosclerotic heart disease of native coronary artery without angina pectoris (principal); I10 Essential (primary) hypertension; E78.00 Pure hypercholesterolemia, unspecified; I25.2 Old myocardial infarction; Z82.49 Family history of ischemic heart disease and other diseases of the circulatory system
CPT/HCPCS: 78452; 93005; 96374; 96375; A9500; J0153

== ENCOUNTER 2020-01-01 06:39 | Inpatient (IN) | payer MEDICARE ==
[~2020-01-01] VITALS: Ht 147.3 cm; Wt 35.5 kg
[~2020-01-01 06:39] MED LIST changes: -ADENOSINE 90 MG/30 ML INJ IV ONE; -ADENOSINE IV ONE; -GIVE UN DILUTED IV ONE; -cloNIDine HCL 0.1 MG TAB ONE
[2020-01-01] MEDS ORDERED: IOHEXOL 350 MG/ML 100ML IJ ONE (07:38)
[2020-01-01] MEDS ORDERED: LIDOCAINE 2%HCL (LOCAL ANESTH.) INJ 20ML MDV ONE (07:38)
[2020-01-01] MEDS ORDERED: fentaNYL CITRATE 100 MCG/2 ML VL ONE (08:29)
[2020-01-01] MEDS ORDERED: MIDAZOLAM HCL 1MG/1ML-2 ML VIAL ONE (08:29)
[2020-01-01] MEDS ORDERED: SODIUM CHL 0.9% 50 ML ONE (08:57)
[2020-01-01] MEDS ORDERED: ANGIOMAX 250 MG VIAL IV ONE (08:57)
[2020-01-01] MEDS ORDERED: NITROGLYCERIN 0.4MG/DOSE SPRAY 4.9GM ONE (09:08)
[2020-01-01] MEDS ORDERED: diphenhdrAMINE HCL 50 MG/1 ML VL ONE (09:13)
[2020-01-01] MEDS ORDERED: IODIXANOL 320MG/ML 100ML BTL IV ONE ×2 (09:33→09:34)
[2020-01-01] MEDS ORDERED: ACETAMINOPHEN 500 MG TAB PO PRN (10:00)
[2020-01-01] MEDS ORDERED: NITROGLYCERIN 0.4 MG SL TAB SL PRN (10:00)
[2020-01-01] MEDS ORDERED: MORPHINE SULF INJ 2 MG/ML SYRINGE 1ML IV PRN (10:00)
[2020-01-01] MEDS ORDERED: HYDROcodone-ACET 5/325MG TAB PO PRN (10:00)
[2020-01-01] MEDS ORDERED: LORATADINE 10 MG TAB PO PRN (10:15)
[2020-01-01] MEDS ORDERED: ACETAMINOPHEN 500 MG PO PRN (10:15)
[2020-01-01] MEDS ORDERED: PANTOPRAZOLE 40 MG TAB PO PRN (10:15)
[2020-01-01] MEDS ORDERED: amLODIPine BESYLATE 5 MG TAB PO ONE (10:30)
[2020-01-01] MEDS ORDERED: amLODIPine BESYLATE 5 MG TAB ONE (10:31)
--- NOTE | 2020-01-01 15:20 | NUR ---
Patient arrived to unit, patient alert and oriented x4, right groin site in tact with gauze and Tegaderm. no bleeding noted, soft upon palpitation, patient with no concerns at this time.
[2020-01-01 17:30] VITALS: BP 179/90
[2020-01-01] MEDS: cloNIDine HCL 0.1 MG TAB PO SCH (17:30)
[2020-01-01 17:58] VITALS: BP 113/54
--- NOTE | 2020-01-01 17:58 | NUR ---
clonidine given early, for high BP, patient states she never has high BP only today prior to procedure and after. clinical laboratory scientist said Dr wei did not want to give anything for PRN elevated BPs. BP came down after 30 mins.
[2020-01-01] MEDS ORDERED: PRAVASTATIN SODIUM 20 MG TAB PO SCH ×2 (18:00→22:00)
--- NOTE | 2020-01-01 18:34 | NUR ---
called dietary per patient she can't have gravy. Changed in the computer as well.
[2020-01-01 21:00] VITALS: BP 93/44
[2020-01-02 05:00] VITALS: BP 114/51
[2020-01-02] MEDS ORDERED: amLODIPine BESYLATE 5 MG TAB PO SCH (07:00)
[2020-01-02] MEDS ORDERED: CALCIUM CARBONATE VITAMIN D PO SCH (07:00)
[2020-01-02] MEDS ORDERED: MULTIPLE VITAMIN TAB PO SCH (07:00)
[2020-01-02] MEDS ORDERED: predniSONE 1 MG TAB PO SCH (07:00)
--- NOTE | 2020-01-02 08:15 | NUR ---
Opening Shift Note Assumed care of patient, awake, alert, and oriented. No S/S of distress/SOB or pain. Bed in lowest/locked position, bed rails up x2, call light within reach. Instructed on POC and to call for assist PRN. Will continue to monitor for changes Q1hr and PRN.
[2020-01-02] MEDS: cloNIDine HCL 0.1 MG TAB PO SCH (08:26)
[2020-01-02 08:27] VITALS: BP 153/69
[2020-01-02 13:02] VITALS: BP 107/53
--- NOTE | 2020-01-02 15:41 | NUR ---
Discharge instructions given as ordered. Encourage to follow up with PMD as instructed. All questions and concerns addressed. Patient verbalized understanding. IV removed with catheter intact, pressure dressing applied. Telemetry unit returned to ICU. Patient taken to vehicle via wheelchair with all personal belongings, accompanied by staff. No distress noted at time of departure.
[2020-01-03] MEDS ORDERED: CLOPIDOGREL BISULFATE 75 MG TAB PO SCH (10:00)
== END 2020-01-02 15:40 | disposition home or self-care (01) | DRG 674 ==
LOC: CATH 06:39 → TELE-CENTR 06:40
PROVIDERS: ADMIT Internal Medicine Cardiovascular Disease; ATTEND Internal Medicine Cardiovascular Disease
PROC: B4181ZZ Fluoroscopy of Bilateral Renal Arteries using Low Osmolar Contrast (ICD-10-PCS; principal; 2020-01-01)
PROC: 047A34Z Dilation of Left Renal Artery with Drug-eluting Intraluminal Device, Percutaneous Approach (ICD-10-PCS; 2020-01-01)
PROC: B4101ZZ Fluoroscopy of Abdominal Aorta using Low Osmolar Contrast (ICD-10-PCS; 2020-01-01)
DX: I70.1 Atherosclerosis of renal artery (principal); D68.59 Other primary thrombophilia; I50.30 Unspecified diastolic (congestive) heart failure; I73.9 Peripheral vascular disease, unspecified; I11.0 Hypertensive heart disease with heart failure; M19.90 Unspecified osteoarthritis, unspecified site; E78.5 Hyperlipidemia, unspecified; I25.10 Atherosclerotic heart disease of native coronary artery without angina pectoris; Z79.02 Long term (current) use of antithrombotics/antiplatelets; Z20.828 Contact with and (suspected) exposure to other viral communicable diseases; Z01.812 Encounter for preprocedural laboratory examination
CPT/HCPCS: 36252; 37236; 75726; 78452; 93005; 96374; 96375; 99152; C1874; G0378; J0153; J2250; Q9967

== ENCOUNTER → 2020-03-12 | Outpatient (CLI) | payer MEDICARE ==
[~2020-03-12] MED LIST changes: +READI-CAT 2 (BARIUM SULF)(VANILLA SMOOTHIE) 450ML ONE
== END | disposition home or self-care (01) ==
LOC: Rad HDHVI 11:01
PROVIDERS: ATTEND Internal Medicine Cardiovascular Disease
DX: K57.30 Diverticulosis of large intestine without perforation or abscess without bleeding (principal); N28.1 Cyst of kidney, acquired; N26.1 Atrophy of kidney (terminal); I70.0 Atherosclerosis of aorta; M47.9 Spondylosis, unspecified; R10.9 Unspecified abdominal pain; Z96.0 Presence of urogenital implants
CPT/HCPCS: 74176

== ENCOUNTER → 2020-03-31 | Outpatient (CLI) | payer MEDICARE ==
[~2020-03-31] MED LIST changes: -READI-CAT 2 (BARIUM SULF)(VANILLA SMOOTHIE) 450ML ONE
[2020-03-31 12:30] VITALS: BP 147/79
[2020-03-31 13:42] VITALS: BP 179/76
== END | disposition home or self-care (01) ==
LOC: CHF HDHVI 12:18
PROVIDERS: ATTEND Internal Medicine Cardiovascular Disease
DX: S81.802A Unspecified open wound, left lower leg, initial encounter (principal); R89.9 Unspecified abnormal finding in specimens from other organs, systems and tissues; X58.XXXA Exposure to other specified factors, initial encounter; Y93.89 Activity, other specified; Y92.89 Other specified places as the place of occurrence of the external cause; Y99.8 Other external cause status
CPT/HCPCS: 36415; 82565; 84520; 87205; G0463

== ENCOUNTER → 2020-04-30 | Outpatient (CLI) | payer MEDICARE ==
[~2020-04-30] MED LIST changes: +ACETAMINOPHEN 500 MG TAB PO ONE; +KETOROLAC TROMETH 60MG/2ML VIAL IM ONE; +KETOROLAC TROMETH 60MG/2ML VIAL ONE
[2020-04-30 12:50] VITALS: BP 150/80
[2020-04-30 13:53] VITALS: BP 188/77
[2020-04-30 14:15] LABS: Urine Blood Negative /uL (Negative); Urine Specific Gravity 1.011 (1.001-1.035)
== END | disposition home or self-care (01) ==
LOC: CHF HDHVI 13:03
PROVIDERS: ATTEND Internal Medicine Cardiovascular Disease
DX: N39.0 Urinary tract infection, site not specified (principal); M48.02 Spinal stenosis, cervical region; I73.9 Peripheral vascular disease, unspecified; S81.811D Laceration without foreign body, right lower leg, subsequent encounter; S81.812D Laceration without foreign body, left lower leg, subsequent encounter
CPT/HCPCS: 72040; 72170; 73030; 81003; 96372; G0463; J1885

== ENCOUNTER 2020-05-16 13:22 | Emergency (ER) | payer MEDICARE ==
[~2020-05-16] VITALS: Ht 144.8 cm; Wt 37.6 kg
[~2020-05-16 13:22] MED LIST changes: -ACETAMINOPHEN 500 MG TAB PO ONE; -KETOROLAC TROMETH 60MG/2ML VIAL IM ONE; -KETOROLAC TROMETH 60MG/2ML VIAL ONE
[2020-05-16 14:48] VITALS: BP 186/79
[2020-05-16] MEDS ORDERED: CLINDAMYCIN 300MG IV 50 ML IV ONE (18:15)
[2020-05-16] MEDS ORDERED: BACITRACIN TOP OINT 1 UD PKG TOP ONE (20:00)
== END 2020-05-16 21:06 | disposition home or self-care (01) ==
LOC: ER 13:22
DX: S01.412A Laceration without foreign body of left cheek and temporomandibular area, initial encounter (principal); S81.012A Laceration without foreign body, left knee, initial encounter; L03.116 Cellulitis of left lower limb; W01.0XXA Fall on same level from slipping, tripping and stumbling without subsequent striking against object, initial encounter; Y93.89 Activity, other specified; Y92.89 Other specified places as the place of occurrence of the external cause; Y99.8 Other external cause status
CPT/HCPCS: 70450; 70486; 72125; 73562; 87205; 96365; 99285; J3490; A4565

== ENCOUNTER → 2020-05-17 | Outpatient (CLI) | payer MEDICARE ==
[2020-05-17 13:10] VITALS: BP 165/64
[2020-05-17 17:00] VITALS: BP 190/70
== END | disposition home or self-care (01) ==
LOC: CHF HDHVI 13:15
PROVIDERS: ATTEND Internal Medicine Cardiovascular Disease
DX: S01.411A Laceration without foreign body of right cheek and temporomandibular area, initial encounter (principal); S81.801A Unspecified open wound, right lower leg, initial encounter; S81.802A Unspecified open wound, left lower leg, initial encounter; W19.XXXA Unspecified fall, initial encounter; X58.XXXA Exposure to other specified factors, initial encounter; Y93.89 Activity, other specified; Y92.89 Other specified places as the place of occurrence of the external cause; Y99.8 Other external cause status
CPT/HCPCS: G0463

== ENCOUNTER → 2020-05-19 | Outpatient (CLI) | payer MEDICARE ==
[~2020-05-19] MED LIST changes: +FURO20TA3 PO; +MULT-1058 PO; +POTA1TAB4 PO; +VANCOMYCIN 1GM/250ML 250 ML IV ONE; +cloNIDine HCL 0.1 MG TAB ONE; +cloNIDine HCL 0.1 MG TAB PO ONE
[2020-05-19 09:05] VITALS: BP 141/64
[2020-05-19 14:38] VITALS: BP 123/52
== END | disposition home or self-care (01) ==
LOC: CHF HDHVI 09:19
PROVIDERS: ATTEND Internal Medicine Cardiovascular Disease
DX: S01.412D Laceration without foreign body of left cheek and temporomandibular area, subsequent encounter (principal); S81.012D Laceration without foreign body, left knee, subsequent encounter; S81.011D Laceration without foreign body, right knee, subsequent encounter; L03.116 Cellulitis of left lower limb; I73.9 Peripheral vascular disease, unspecified; X58.XXXD Exposure to other specified factors, subsequent encounter
CPT/HCPCS: 96365; G0463; J3370

== ENCOUNTER 2020-08-06 13:36 | Inpatient (IN) | payer MEDICARE ==
[~2020-08-06] VITALS: Ht 142.2 cm; Wt 38.9 kg
[~2020-08-06 13:36] MED LIST changes: -FURO20TA3 PO; -MULT-1058 PO; -POTA1TAB4 PO; -VANCOMYCIN 1GM/250ML 250 ML IV ONE; -cloNIDine HCL 0.1 MG TAB ONE; -cloNIDine HCL 0.1 MG TAB PO ONE
[2020-08-06] MEDS ORDERED: cloNIDine HCL 0.1 MG TAB PO ONE (14:15)
[2020-08-06] MEDS ORDERED: SODIUM CHLORIDE 0.9% 1,000 ML IV ONE (14:15)
[2020-08-06] MEDS ORDERED: ONDANSETRON HCL 4 MG/2 ML VIAL IV ONE ×2 (14:30)
[2020-08-06] MEDS ORDERED: MORPHINE SULF INJ 2 MG/ML SYRINGE 1ML IV ONE (15:15)
[2020-08-06 15:31] LABS: Basophils # (auto) 0.1 10 ^3/uL (0-0.2); Basophils % (auto) 0.5 % (0.0-2.0); Eosinophils # (auto) 0 10 ^3/uL (0-0.8); Eosinophils % (auto) 0.2 % (0.0-7.0); Hematocrit 45.7 % (36.0-46.0); Hemoglobin 15.2 g/dL (12.2-16.2); Lymphocytes # (auto) 0.5 10 ^3/uL (0.4-5.4); Mean Corpuscular Hemoglobin 30.9 pg (28.0-32.0); Mean Corpuscular Hgb Conc. 33.3 g/dL (32.0-36.0); Mean Corpuscular Volume 92.8 fL (80.0-100.0); Monocytes # (auto) 0.8 10 ^3/uL (0-1.3); Neutrophils # (auto) 11.6 10 ^3/uL (1.6-8.6); Neutrophils % (auto) 89.3 % (37.0-80.0); Platelet Count (auto) 250 10^3/uL (140-450); Red Blood Cells 4.92 10^6/uL (4.0-5.20)
[2020-08-06 15:50] LABS: Alanine Aminotransferase 44 U/L (13-56); Albumin 3.5 g/dL (3.4-5.0); Anion Gap 12 (5-15); Aspartate Aminotransferase 46 U/L (15-37); BUN/Creatinine Ratio 18.2; Blood Urea Nitrogen 25 mg/dL (7-18); Carbon Dioxide 30 mmol/L (21-32); Chloride 92 mmol/L (98-107); GFR African American 47 mL/min; GFR Non-African American 39 mL/min; Glucose 175 mg/dL (74-106); Sodium 134 mmol/L (136-145)
[2020-08-06 15:55] LABS: Alkaline Phosphatase 82 U/L (45-117); Bilirubin, Total 0.5 mg/dL (0.2-1.0); Total Protein 6.8 g/dL (6.4-8.2)
[2020-08-06] MEDS ORDERED: MORPHINE SULF INJ 2 MG/ML SYRINGE 1ML IV PRN ×3 (16:30→18:30)
[2020-08-06] MEDS ORDERED: POTASSIUM EFFERVESENT TAB 25 MEQ PO ONE (16:30)
[2020-08-06] MEDS ORDERED: levoFLOXacin 500MG 100 ML IV ONE (16:30)
[2020-08-06] MEDS ORDERED: NITROGLYCERIN 0.4 MG SL TAB SL PRN ×2 (16:30→18:30)
[2020-08-06] MEDS ORDERED: ONDANSETRON HCL 4 MG/2 ML VIAL ONE (17:18)
[2020-08-06 17:28] LABS: INR 1.08 (0.9-1.15)
[2020-08-06] MEDS: HYDROmorphone HCL 2 MG/ML VL IV PRN ×2 (17:42→22:04)
[2020-08-06] MEDS: POTASSIUM CHLORIDE 40 MEQ, LIDOCAINE 1% (LOCAL ANESTH.) 4 ML in SODIUM CHL 0.9% 250 ML IV ONE ×2 (18:07→19:00)
[2020-08-06] MEDS ORDERED: LORazepam 0.5 MG TAB PO PRN (18:30)
[2020-08-06] MEDS ORDERED: ALUM & MAG HYDROX-SIMETH LIQ(MAALOX) 30 ML PO PRN (18:30)
[2020-08-06] MEDS ORDERED: hydrALAZINE HCL 25 MG TAB PO PRN (18:30)
[2020-08-06] MEDS ORDERED: LABETALOL HCL 5 MG/ML 4ML SYRINGE IV ONE (18:30)
[2020-08-06] MEDS ORDERED: DOCUSATE SOD 100 MG CAP PO PRN (18:30)
[2020-08-06] MEDS ORDERED: ACETAMINOPHEN 325 MG TAB PO PRN (18:30)
[2020-08-06] MEDS ORDERED: METOCLOPRAMIDE HCL 5MG/ml INJ 2ml VIAL IV PRN (18:30)
[2020-08-06 19:10] LABS: Cholesterol 188 mg/dL (< 200); HDL Cholesterol 70 mg/dL (40-59); LDL Cholesterol 110 mg/dL (< 100); Triglycerides 110 mg/dL (< 150)
[2020-08-06] MEDS ORDERED: ERYTHROMYCIN 250 MG TAB PO ONE (20:00)
[2020-08-06 20:20] VITALS: BP 133/70
[2020-08-06 21:04] LABS: Urine Bacteria NONE SEEN /hpf (None Seen); Urine Blood Negative /uL (Negative); Urine Specific Gravity 1.007 (1.001-1.035); Urine WBC 1 /hpf (0 - 5)
[2020-08-06 21:16] LABS: Alcohol, Urine < 3.0 mg/dL (0-10); Amphetamine Screen, Urine NEGATIVE (NEGATIVE); Barbiturate Scree,Urine NEGATIVE (NEGATIVE); Benzodiazephine Screen, Urine NEGATIVE (NEGATIVE); Cannabinoid Screen, Urine NEGATIVE (NEGATIVE); Cocaine Screen, Urine NEGATIVE (NEGATIVE); Opiate Scree,Urine NEGATIVE (NEGATIVE); Phencyclidine Screen, Urine NEGATIVE (NEGATIVE)
[2020-08-06] MEDS ORDERED: POTA1TAB4 PO (22:06)
[2020-08-06] MEDS ORDERED: PRE1T PO (22:06)
[2020-08-06] MEDS ORDERED: SIMV10TA84 PO (22:06)
[2020-08-06] MEDS ORDERED: AML5T PO (22:06)
[2020-08-06] MEDS ORDERED: FURO20TA3 PO (22:06)
[2020-08-06] MEDS ORDERED: PANT40TA2 PO (22:06)
[2020-08-06] MEDS ORDERED: MULT-1058 PO (22:06)
[2020-08-06 22:29] VITALS: BP 133/70
[2020-08-06] MEDS: D5W/SOD CHL 0.45%/KCL 40MEQ 1,000 ML IV SCH (23:20)
[2020-08-06] MEDS: PANTOPRAZOLE 40 MG/10 ML VIAL INJ IV SCH (23:20)
[2020-08-06] MEDS: ONDANSETRON HCL 4 MG/2 ML VIAL IV PRN (23:30)
[2020-08-07] MEDS: HYDROmorphone HCL 2 MG/ML VL IV PRN ×4 (03:13→20:06)
[2020-08-07 05:00] VITALS: BP 107/49
[2020-08-07 05:53] LABS: Hematocrit 43.7 % (36.0-46.0); Hemoglobin 14.4 g/dL (12.2-16.2); Mean Corpuscular Hemoglobin 30.7 pg (28.0-32.0); Mean Corpuscular Hgb Conc. 32.9 g/dL (32.0-36.0); Mean Corpuscular Volume 93.3 fL (80.0-100.0); Platelet Count (auto) 219 10^3/uL (140-450); Red Blood Cells 4.69 10^6/uL (4.0-5.20); Red Cell Distribution Width 13.2 % (11.8-14.3); White Blood Cell 19.9 10^3/uL (4.4-10.8)
[2020-08-07 06:11] LABS: Basophils % (manual) 0 (0.0-2.0); Blast Cells 0; Eosinophils % (manual) 0 (0-7); Promyelocytes % 0; Reactive Lymphocytes 0
[2020-08-07 06:13] LABS: INR 1.08 (0.9-1.15); Partial Thromboplastin Time 28.5 sec (23.0-31.2)
[2020-08-07 06:22] LABS: Albumin 2.9 g/dL (3.4-5.0); Calcium 8.2 mg/dL (8.5-10.1); Magnesium 2.6 mg/dL (1.6-2.6); Potassium 3.2 mmol/L (3.5-5.1)
[2020-08-07 06:26] LABS: BUN/Creatinine Ratio 19.4; Bilirubin, Total 0.7 mg/dL (0.2-1.0); Phosphorus 3.6 mg/dL (2.5-4.90); Total Protein 5.9 g/dL (6.4-8.2)
[2020-08-07 06:49] LABS: Band Neutrophils % (manual) 45; Lymphocytes % (manual) 4 (10.0-50.0); Metamyelocytes % 1; Monocytes % (manual) 6 (0-12); Myelocytes % 2
[2020-08-07 08:23] VITALS: BP 155/74
[2020-08-07] MEDS: PANTOPRAZOLE 40 MG/10 ML VIAL INJ IV SCH ×2 (09:00→22:08)
[2020-08-07] MEDS: D5W/SOD CHL 0.45%/KCL 40MEQ 1,000 ML IV SCH ×2 (09:01→22:08)
[2020-08-07] MEDS ORDERED: SODIUM CHLORIDE LOCK 10 ML ONE (09:14)
[2020-08-07] MEDS ORDERED: LIDOCAINE VISCOUS 2% 15ML UD ONE (09:14)
[2020-08-07] MEDS ORDERED: MIDAZOLAM HCL 5 MG/ML-1ML VIAL ONE (09:14)
[2020-08-07] MEDS ORDERED: fentaNYL CITRATE 100 MCG/2 ML VL ONE (09:15)
[2020-08-07] MEDS ORDERED: diphenhdrAMINE HCL 50 MG/1 ML VL ONE (09:15)
[2020-08-07] MEDS ORDERED: NALOXONE HCL 1MG/ML 2ML SYRINGE IV ONE (09:49)
[2020-08-07] MEDS: hydrALAZINE HCL 20 MG/ML VL IV PRN (11:13)
[2020-08-07] MEDS: ERYTHROMYCIN 250 MG TAB PO SCH ×2 (12:04→22:00)
[2020-08-07] MEDS: SUCRALFATE 1 GM/10 ML ORAL SUSP PO SCH ×3 (12:05→22:09)
[2020-08-07 12:12] VITALS: BP 195/81
[2020-08-07 13:00] VITALS: BP 145/69
[2020-08-07] MEDS: ONDANSETRON HCL 4 MG/2 ML VIAL IV PRN ×2 (16:38→20:34)
[2020-08-07 17:05] VITALS: BP 148/72
[2020-08-07 22:00] VITALS: BP 143/59
[2020-08-08] MEDS: HYDROmorphone HCL 2 MG/ML VL IV PRN ×5 (01:15→22:25)
[2020-08-08 05:00] VITALS: BP 158/69
[2020-08-08] MEDS: SUCRALFATE 1 GM/10 ML ORAL SUSP PO SCH ×4 (06:53→22:00)
[2020-08-08 07:29] LABS: Albumin 2.3 g/dL (3.4-5.0); Calcium 8.4 mg/dL (8.5-10.1); Magnesium 2.6 mg/dL (1.6-2.6); Potassium 4.7 mmol/L (3.5-5.1)
[2020-08-08 07:34] LABS: BUN/Creatinine Ratio 20.7; Bilirubin, Total 0.7 mg/dL (0.2-1.0); Total Protein 5.5 g/dL (6.4-8.2)
[2020-08-08 07:56] LABS: Hematocrit 46.6 % (36.0-46.0); Hemoglobin 15.1 g/dL (12.2-16.2); Mean Corpuscular Hemoglobin 30.5 pg (28.0-32.0); Mean Corpuscular Hgb Conc. 32.4 g/dL (32.0-36.0); Mean Corpuscular Volume 94.3 fL (80.0-100.0); Platelet Count (auto) 197 10^3/uL (140-450); Red Blood Cells 4.94 10^6/uL (4.0-5.20); Red Cell Distribution Width 13.3 % (11.8-14.3); White Blood Cell 12.6 10^3/uL (4.4-10.8)
[2020-08-08 08:00] LABS: Basophils % (manual) 0 (0.0-2.0); Blast Cells 0; Eosinophils % (manual) 0 (0-7); Promyelocytes % 0; Reactive Lymphocytes 0
[2020-08-08 08:30] VITALS: BP 150/74
[2020-08-08 08:44] LABS: Band Neutrophils % (manual) 25; Lymphocytes % (manual) 3 (10.0-50.0); Metamyelocytes % 2; Monocytes % (manual) 9 (0-12); Myelocytes % 1
[2020-08-08] MEDS: PANTOPRAZOLE 40 MG/10 ML VIAL INJ IV SCH ×2 (08:53→22:24)
[2020-08-08] MEDS: ERYTHROMYCIN 250 MG TAB PO SCH (08:53)
[2020-08-08] MEDS: D5W/SOD CHL 0.45%/KCL 40MEQ 1,000 ML IV SCH ×2 (10:30→23:50)
[2020-08-08] MEDS: ALUM & MAG HYDROX-SIMETH LIQ(MAALOX) 30 ML PO SCH ×2 (13:27→22:25)
[2020-08-08] MEDS: METOCLOPRAMIDE HCL 5MG/ml INJ 2ml VIAL IV SCH ×2 (13:27→22:25)
[2020-08-08 13:30] VITALS: BP 142/72
[2020-08-08 16:36] VITALS: BP 136/74
[2020-08-08 22:30] VITALS: BP 150/63
[2020-08-09] MEDS: HYDROmorphone HCL 2 MG/ML VL IV PRN ×5 (04:24→22:21)
[2020-08-09 05:09] VITALS: BP 146/67
[2020-08-09] MEDS: METOCLOPRAMIDE HCL 5MG/ml INJ 2ml VIAL IV SCH ×3 (06:36→22:19)
[2020-08-09] MEDS: ALUM & MAG HYDROX-SIMETH LIQ(MAALOX) 30 ML PO SCH ×3 (06:36→14:50)
[2020-08-09] MEDS: SUCRALFATE 1 GM/10 ML ORAL SUSP PO SCH ×3 (06:44→17:00)
[2020-08-09 08:40] VITALS: BP 158/77
[2020-08-09] MEDS: PANTOPRAZOLE 40 MG/10 ML VIAL INJ IV SCH ×2 (08:53→22:19)
[2020-08-09] MEDS: hydrALAZINE HCL 20 MG/ML VL IV PRN (08:53)
[2020-08-09] MEDS ORDERED: CALCIUM CHL 100MG/ML 1,000 MG in D5W 5% 100 ML IV ONE (10:00)
[2020-08-09 13:00] VITALS: BP 152/70
[2020-08-09] MEDS: D5W/SOD CHL 0.45%/KCL 40MEQ 1,000 ML IV SCH (13:10)
[2020-08-09 17:00] VITALS: BP 143/62
[2020-08-09] MEDS: SODIUM CHLORIDE 0.9% 1,000 ML IV SCH (17:17)
[2020-08-09] MEDS ORDERED: TPN PER PHARMACY 0 ML IV SCH (17:30)
[2020-08-09] MEDS ORDERED: VANCOMYCIN PER PHARMACY 0 MG IV SCH (17:30)
[2020-08-09] MEDS ORDERED: VANCOMYCIN 1GM/250ML 250 ML IV ONE (17:45)
[2020-08-09] MEDS ORDERED: levoFLOXacin 500MG 100 ML IV ONE ×2 (18:00→21:00)
[2020-08-09] MEDS ORDERED: Ensure HIGH Protein Chocolate 8oz Bottle PO SCH (18:00)
[2020-08-09 20:00] VITALS: BP 144/50
[2020-08-09] MEDS ORDERED: AMINO ACID INFUSION IN D10W 1,000 ML IV NR (20:00)
[2020-08-09 22:00] VITALS: BP 144/50
[2020-08-09] MEDS: metroNIDAZOLE 500MG/100ML 100 ML IV SCH (22:19)
[2020-08-09] MEDS: InsuLIN REG 1unit/0.01ml Soln (100units/ml) SC SCH (23:20)
[2020-08-09] MEDS: ACCU-CHEK COMFORT CURVE STRIP VI SCH (23:20)
[2020-08-10] VITALS (10 sets, daily range): BP systolic 101–163; BP diastolic 56–88
[2020-08-10] MEDS ORDERED: DEXTROSE (50%) 50ML SYRG IV SCH
[2020-08-10] MEDS: SODIUM CHLORIDE 0.9% 1,000 ML IV SCH ×2 (04:50→18:15)
[2020-08-10] MEDS: metroNIDAZOLE 500MG/100ML 100 ML IV SCH (05:57)
[2020-08-10] MEDS: METOCLOPRAMIDE HCL 5MG/ml INJ 2ml VIAL IV SCH ×3 (05:57→20:58)
[2020-08-10] MEDS: HYDROmorphone HCL 2 MG/ML VL IV PRN ×2 (05:57→21:26)
[2020-08-10] MEDS: ACCU-CHEK COMFORT CURVE STRIP VI SCH ×3 (05:57→18:04)
[2020-08-10] MEDS: InsuLIN REG 1unit/0.01ml Soln (100units/ml) SC SCH ×3 (06:02→18:00)
[2020-08-10 07:43] LABS: Hematocrit 43.2 % (36.0-46.0); Hemoglobin 14.1 g/dL (12.2-16.2); Mean Corpuscular Hemoglobin 30.8 pg (28.0-32.0); Mean Corpuscular Hgb Conc. 32.6 g/dL (32.0-36.0); Mean Corpuscular Volume 94.6 fL (80.0-100.0); Platelet Count (auto) 133 10^3/uL (140-450); Red Blood Cells 4.57 10^6/uL (4.0-5.20); Red Cell Distribution Width 13.4 % (11.8-14.3); White Blood Cell 16.5 10^3/uL (4.4-10.8)
[2020-08-10 07:45] LABS: Basophils % (manual) 0 (0.0-2.0); Blast Cells 0; Eosinophils % (manual) 0 (0-7); Myelocytes % 0; Promyelocytes % 0; Reactive Lymphocytes 0
[2020-08-10 07:50] LABS: INR 1.07 (0.9-1.15)
[2020-08-10 08:01] LABS: Albumin 1.9 g/dL (3.4-5.0); Magnesium 2.7 mg/dL (1.6-2.6); Potassium 4.9 mmol/L (3.5-5.1)
[2020-08-10 08:06] LABS: BUN/Creatinine Ratio 32.1; Bilirubin, Total 0.9 mg/dL (0.2-1.0); Pre Albumin 3.6 mg/dL (20.0-40.0); Total Protein 5.1 g/dL (6.4-8.2)
[2020-08-10 08:39] LABS: Band Neutrophils % (manual) 8; Lymphocytes % (manual) 1 (10.0-50.0); Metamyelocytes % 1; Monocytes % (manual) 1 (0-12)
[2020-08-10] MEDS: PANTOPRAZOLE 40 MG/10 ML VIAL INJ IV SCH ×2 (09:19→20:58)
[2020-08-10] MEDS ORDERED: levoFLOXacin 500MG 100 ML IV SCH (10:00)
[2020-08-10] MEDS ORDERED: HYDROmorphone HCL 2 MG/ML VL IM ONE (11:15)
[2020-08-10] MEDS ORDERED: MEROPENEM 500MG IVPB 50 ML IV SCH (12:00)
[2020-08-10] MEDS ORDERED: levoFLOXacin 250MG 50 ML IV SCH (12:00)
[2020-08-10] MEDS ORDERED: MEROPENEM 500MG IVPB 50 ML IV ONE (13:00)
[2020-08-10] MEDS ORDERED: LIDOCAINE 2%HCL (LOCAL ANESTH.) INJ 20ML MDV ONE (13:47)
[2020-08-10] MEDS ORDERED: MIDAZOLAM HCL 1MG/1ML-2 ML VIAL ONE (13:59)
[2020-08-10] MEDS ORDERED: fentaNYL CITRATE 100 MCG/2 ML VL ONE (13:59)
[2020-08-10] MEDS ORDERED: NALOXONE HCL 0.4 MG/ML VIAL IV ONE (14:30)
[2020-08-10] MEDS ORDERED: NALOXONE HCL 0.4 MG/ML VIAL IV STA (14:36)
[2020-08-10] MEDS ORDERED: NALOXONE HCL 0.4 MG/ML VIAL ONE (14:38)
[2020-08-10] MEDS ORDERED: LIDOCAINE 1% (LOCAL ANESTH.) PF 5ml SDV ID ONE (19:15)
[2020-08-10] MEDS: SODIUM CHLOR 0.9% PF (SALINE LOCK) 10ML VIAL/SYR IV SCH (20:58)
[2020-08-10] MEDS: MEROPENEM 500MG IVPB 50 ML IV SCH (20:58)
[2020-08-10] MEDS: PPN PER PHARMACY IV SCH ×4 (21:00)
[2020-08-11] MEDS: InsuLIN REG 1unit/0.01ml Soln (100units/ml) SC SCH ×4 (01:18→18:39)
[2020-08-11] MEDS: HYDROmorphone HCL 2 MG/ML VL IV PRN ×2 (01:48→22:35)
[2020-08-11 04:43] VITALS: BP 157/73
[2020-08-11] MEDS: METOCLOPRAMIDE HCL 5MG/ml INJ 2ml VIAL IV SCH ×3 (05:48→21:19)
[2020-08-11] MEDS: hydrALAZINE HCL 20 MG/ML VL IV PRN ×2 (05:50→22:41)
[2020-08-11] MEDS: ACCU-CHEK COMFORT CURVE STRIP VI SCH ×4 (05:51→18:38)
[2020-08-11 07:36] LABS: Potassium 5.1 mmol/L (3.5-5.1)
[2020-08-11 07:57] LABS: Albumin 1.7 g/dL (3.4-5.0); BUN/Creatinine Ratio 36.7; Bilirubin, Total 0.8 mg/dL (0.2-1.0); Calcium 8.9 mg/dL (8.5-10.1); Magnesium 2.7 mg/dL (1.6-2.6); Phosphorus 4.3 mg/dL (2.5-4.90); Total Protein 4.8 g/dL (6.4-8.2)
[2020-08-11 09:00] VITALS: BP 115/83
[2020-08-11] MEDS: SODIUM CHLORIDE 0.9% 1,000 ML IV SCH ×2 (09:19→21:15)
[2020-08-11 09:22] LABS: Basophils # (auto) 0 10 ^3/uL (0-0.2); Basophils % (auto) 0.2 % (0.0-2.0); Eosinophils # (auto) 0.3 10 ^3/uL (0-0.8); Eosinophils % (auto) 2.2 % (0.0-7.0); Hematocrit 43.6 % (36.0-46.0); Hemoglobin 14.3 g/dL (12.2-16.2); Lymphocytes # (auto) 0.3 10 ^3/uL (0.4-5.4); Mean Corpuscular Hemoglobin 30.6 pg (28.0-32.0); Mean Corpuscular Hgb Conc. 32.9 g/dL (32.0-36.0); Mean Corpuscular Volume 93.2 fL (80.0-100.0); Monocytes # (auto) 0.6 10 ^3/uL (0-1.3); Monocytes % (auto) 4.6 % (0.0-12.0); Neutrophils # (auto) 12.4 10 ^3/uL (1.6-8.6); Nucleated Red Blood Cells % 0.2 %; Platelet Count (auto) 76 10^3/uL (140-450); Red Blood Cells 4.68 10^6/uL (4.0-5.20); White Blood Cell 13.6 10^3/uL (4.4-10.8)
[2020-08-11] MEDS: MEROPENEM 500MG IVPB 50 ML IV SCH ×2 (11:41→22:35)
[2020-08-11] MEDS: SODIUM CHLOR 0.9% PF (SALINE LOCK) 10ML VIAL/SYR IV SCH ×2 (11:41→21:16)
[2020-08-11] MEDS: PANTOPRAZOLE 40 MG/10 ML VIAL INJ IV SCH ×2 (11:41→21:15)
[2020-08-11 13:00] VITALS: BP 125/75
[2020-08-11] MEDS: metroNIDAZOLE 500MG/100ML 100 ML IV SCH ×2 (14:01→21:15)
[2020-08-11 16:53] VITALS: BP 120/76
[2020-08-11] MEDS: PPN PER PHARMACY IV SCH ×4 (19:58)
[2020-08-11] MEDS ORDERED: SODIUM ACETATE IV SCH ×5 (20:00)
[2020-08-11] MEDS ORDERED: [UNRECOGNIZED DRUG - OTHER] IV SCH ×5 (20:00)
[2020-08-11] MEDS ORDERED: MULTIPLE VITAMIN IV SCH ×5 (20:00)
[2020-08-11] MEDS ORDERED: INSULIN R IV SCH ×5 (20:00)
[2020-08-11 22:00] VITALS: BP 162/74
[2020-08-12] MEDS: ACCU-CHEK COMFORT CURVE STRIP VI SCH ×3 (00:01→17:14)
[2020-08-12] MEDS: InsuLIN REG 1unit/0.01ml Soln (100units/ml) SC SCH ×3 (00:03→17:32)
[2020-08-12 00:08] VITALS: BP 117/56
[2020-08-12] MEDS: HYDROmorphone HCL 2 MG/ML VL IV PRN ×4 (04:05→22:08)
[2020-08-12 05:00] VITALS: BP 143/56
[2020-08-12] MEDS: metroNIDAZOLE 500MG/100ML 100 ML IV SCH ×3 (05:16→21:39)
[2020-08-12] MEDS: METOCLOPRAMIDE HCL 5MG/ml INJ 2ml VIAL IV SCH ×3 (05:16→21:39)
[2020-08-12 06:40] LABS: Basophils # (auto) 0 10 ^3/uL (0-0.2); Hemoglobin 13.8 g/dL (12.2-16.2); Lymphocytes # (auto) 0.3 10 ^3/uL (0.4-5.4); Lymphocytes % (auto) 2.2 % (10.0-50.0); Monocytes # (auto) 0.8 10 ^3/uL (0-1.3)
[2020-08-12 06:43] LABS: Eosinophils # (auto) 0 10 ^3/uL (0-0.8); Eosinophils % (auto) 0.2 % (0.0-7.0); Hematocrit 41.5 % (36.0-46.0); Mean Corpuscular Hemoglobin 30.8 pg (28.0-32.0); Mean Corpuscular Hgb Conc. 33.3 g/dL (32.0-36.0); Mean Corpuscular Volume 92.3 fL (80.0-100.0); Monocytes % (auto) 5.8 % (0.0-12.0); Neutrophils # (auto) 11.9 10 ^3/uL (1.6-8.6); Neutrophils % (auto) 91.8 % (37.0-80.0); Nucleated Red Blood Cells % 0.1 %; Red Blood Cells 4.49 10^6/uL (4.0-5.20); Red Cell Distribution Width 13.4 % (11.8-14.3)
[2020-08-12 06:48] LABS: Potassium 3.3 mmol/L (3.5-5.1)
[2020-08-12 07:05] LABS: Albumin 1.7 g/dL (3.4-5.0); BUN/Creatinine Ratio 48.9; Bilirubin, Total 1.1 mg/dL (0.2-1.0); Calcium 8.9 mg/dL (8.5-10.1); Magnesium 2.4 mg/dL (1.6-2.6); Phosphorus 2.1 mg/dL (2.5-4.90); Total Protein 4.5 g/dL (6.4-8.2)
[2020-08-12 07:28] LABS: Platelet Count (auto) 50 10^3/uL (140-450)
[2020-08-12] MEDS ORDERED: IOHEXOL 350 MG/ML 100ML IJ ONE (07:45)
[2020-08-12 08:56] VITALS: BP 130/68
[2020-08-12] MEDS ORDERED: POTASSIUM CHL 20MEQ/100ML 100 ML IV ONE (09:30)
[2020-08-12] MEDS ORDERED: POTASSIUM PHOSP 22MEQ(15MMOLE) in NS 100 ML IV ONE (10:00)
[2020-08-12] MEDS: MEROPENEM 500MG IVPB 50 ML IV SCH ×2 (10:42→22:43)
[2020-08-12] MEDS: PANTOPRAZOLE 40 MG/10 ML VIAL INJ IV SCH ×2 (10:44→21:39)
[2020-08-12] MEDS: SODIUM CHLOR 0.9% PF (SALINE LOCK) 10ML VIAL/SYR IV SCH ×2 (10:44→21:40)
[2020-08-12 13:00] VITALS: BP 133/71
[2020-08-12] MEDS: SOD CHL 0.45% 1,000 ML IV SCH ×2 (13:20→21:40)
[2020-08-12 16:30] VITALS: BP 153/68
[2020-08-12] MEDS ORDERED: DEXTROSE (50%) 50ML SYRG IV SCH (18:00)
[2020-08-12] MEDS ORDERED: LIDOCAINE 1% (LOCAL ANESTH.) PF 5ml SDV ID ONE (20:45)
[2020-08-12] MEDS: TPN PER PHARMACY IV SCH ×6 (21:38)
[2020-08-12 22:00] VITALS: BP 117/71
[2020-08-13] VITALS (8 sets, daily range): BP systolic 104–160; BP diastolic 68–91
[2020-08-13] MEDS: ACCU-CHEK COMFORT CURVE STRIP VI SCH ×4 (00:07→17:42)
[2020-08-13] MEDS: InsuLIN REG 1unit/0.01ml Soln (100units/ml) SC SCH ×4 (00:09→18:03)
[2020-08-13] MEDS: HYDROmorphone HCL 2 MG/ML VL IV PRN (01:11)
[2020-08-13] MEDS: metroNIDAZOLE 500MG/100ML 100 ML IV SCH ×3 (06:37→21:47)
[2020-08-13] MEDS: METOCLOPRAMIDE HCL 5MG/ml INJ 2ml VIAL IV SCH ×3 (06:37→21:47)
[2020-08-13 07:37] LABS: Basophils # (auto) 0 10 ^3/uL (0-0.2); Eosinophils # (auto) 0 10 ^3/uL (0-0.8); Eosinophils % (auto) 0.1 % (0.0-7.0); Lymphocytes # (auto) 0.4 10 ^3/uL (0.4-5.4); Mean Corpuscular Hemoglobin 30.6 pg (28.0-32.0); Neutrophils # (auto) 14.2 10 ^3/uL (1.6-8.6)
[2020-08-13 07:43] LABS: Basophils % (auto) 0.3 % (0.0-2.0); Hematocrit 44.4 % (36.0-46.0); Hemoglobin 14.5 g/dL (12.2-16.2); Lymphocytes % (auto) 2.7 % (10.0-50.0); Mean Corpuscular Hgb Conc. 32.6 g/dL (32.0-36.0); Mean Corpuscular Volume 93.8 fL (80.0-100.0); Monocytes # (auto) 0.3 10 ^3/uL (0-1.3); Monocytes % (auto) 2.2 % (0.0-12.0); Neutrophils % (auto) 94.7 % (37.0-80.0); Platelet Count (auto) 40 10^3/uL (140-450); Red Blood Cells 4.73 10^6/uL (4.0-5.20); Red Cell Distribution Width 13.5 % (11.8-14.3)
[2020-08-13 07:50] LABS: Albumin 1.7 g/dL (3.4-5.0); BUN/Creatinine Ratio 50.4; Calcium 8.7 mg/dL (8.5-10.1); Potassium 3.5 mmol/L (3.5-5.1)
[2020-08-13 07:53] LABS: Bilirubin, Total 1.2 mg/dL (0.2-1.0); Phosphorus 2.9 mg/dL (2.5-4.90); Total Protein 4.5 g/dL (6.4-8.2)
[2020-08-13 10:33] LABS: INR 1.6 (0.9-1.15)
[2020-08-13] MEDS: MEROPENEM 500MG IVPB 50 ML IV SCH ×2 (10:47→22:00)
[2020-08-13] MEDS: SODIUM CHLOR 0.9% PF (SALINE LOCK) 10ML VIAL/SYR IV SCH ×2 (10:48→21:47)
[2020-08-13] MEDS: PANTOPRAZOLE 40 MG/10 ML VIAL INJ IV SCH ×2 (10:48→21:47)
[2020-08-13] MEDS: SOD CHL 0.45% 1,000 ML IV SCH (12:25)
[2020-08-13] MEDS ORDERED: LACTATED RINGER'S 1,000 ML IV ONE (17:30)
[2020-08-13] MEDS ORDERED: ENOXAPARIN SOD 40 MG/0.4 ML SYRINGE SC ONE (18:30)
[2020-08-13] MEDS: TPN PER PHARMACY IV SCH ×6 (19:47)
[2020-08-13] MEDS: TPN PER PHARMACY IV NR ×7 (20:09)
[2020-08-14] MEDS: ACCU-CHEK COMFORT CURVE STRIP VI SCH ×4 (00:13→18:18)
[2020-08-14] MEDS: InsuLIN REG 1unit/0.01ml Soln (100units/ml) SC SCH ×4 (00:15→18:00)
[2020-08-14] MEDS: SOD CHL 0.45% 1,000 ML IV SCH ×2 (01:45→15:33)
[2020-08-14 05:00] VITALS: BP 113/89
[2020-08-14 06:17] LABS: Basophils # (auto) 0 10 ^3/uL (0-0.2); Basophils % (auto) 0.3 % (0.0-2.0); Eosinophils # (auto) 0 10 ^3/uL (0-0.8); Eosinophils % (auto) 0.1 % (0.0-7.0); Hematocrit 42.4 % (36.0-46.0); Hemoglobin 14.1 g/dL (12.2-16.2); Lymphocytes # (auto) 0.6 10 ^3/uL (0.4-5.4); Lymphocytes % (auto) 3.7 % (10.0-50.0); Mean Corpuscular Hemoglobin 30.6 pg (28.0-32.0); Mean Corpuscular Hgb Conc. 33.4 g/dL (32.0-36.0); Mean Corpuscular Volume 91.9 fL (80.0-100.0); Monocytes # (auto) 0.9 10 ^3/uL (0-1.3); Neutrophils # (auto) 13.4 10 ^3/uL (1.6-8.6); Neutrophils % (auto) 89.9 % (37.0-80.0); Platelet Count (auto) 66 10^3/uL (140-450); Red Blood Cells 4.61 10^6/uL (4.0-5.20); Red Cell Distribution Width 13.7 % (11.8-14.3)
[2020-08-14] MEDS: metroNIDAZOLE 500MG/100ML 100 ML IV SCH ×3 (06:24→21:18)
[2020-08-14] MEDS: METOCLOPRAMIDE HCL 5MG/ml INJ 2ml VIAL IV SCH ×3 (06:25→22:52)
[2020-08-14] MEDS ORDERED: IOHEXOL 350 MG/ML 100ML IJ ONE (07:36)
[2020-08-14 07:56] LABS: Potassium 3.1 mmol/L (3.5-5.1)
[2020-08-14 08:02] LABS: Albumin 1.7 g/dL (3.4-5.0); BUN/Creatinine Ratio 54.6; Bilirubin, Total 1.1 mg/dL (0.2-1.0); Calcium 8.3 mg/dL (8.5-10.1); Magnesium 1.8 mg/dL (1.6-2.6); Total Protein 4.4 g/dL (6.4-8.2)
[2020-08-14] MEDS: hydrALAZINE HCL 20 MG/ML VL IV PRN (08:12)
[2020-08-14 09:00] VITALS: BP 164/65
[2020-08-14] MEDS: SODIUM CHLOR 0.9% PF (SALINE LOCK) 10ML VIAL/SYR IV SCH ×2 (10:00→22:52)
[2020-08-14] MEDS: PANTOPRAZOLE 40 MG/10 ML VIAL INJ IV SCH ×2 (11:05→22:52)
[2020-08-14] MEDS: MEROPENEM 500MG IVPB 50 ML IV SCH ×2 (11:06→22:52)
[2020-08-14] MEDS ORDERED: POTASSIUM PHOSPHATE 44 MEQ in D5W 5% 250 ML IV ONE (11:45)
[2020-08-14] MEDS ORDERED: POTASSIUM CHL 20MEQ/100ML 100 ML IV ONE (12:15)
[2020-08-14 12:59] VITALS: BP 106/74
[2020-08-14] MEDS ORDERED: POTASSIUM PHOSPHATE 22 MEQ in SODIUM CHL 0.9% 100 ML IV ONE (14:14)
[2020-08-14 17:00] VITALS: BP 102/67
[2020-08-14] MEDS ORDERED: TPN PER PHARMACY IV NR ×8 (20:00)
[2020-08-14] MEDS: TPN PER PHARMACY IV NR ×7 (20:13)
[2020-08-14 22:00] VITALS: BP 146/88
[2020-08-14] MEDS: ENOXAPARIN SOD 40 MG/0.4 ML SYRINGE SC SCH (22:00)
[2020-08-15] VITALS (69 sets, daily range): BP systolic 74–154; BP diastolic 34–99
[2020-08-15] MEDS: ACCU-CHEK COMFORT CURVE STRIP VI SCH ×5 (00:07→23:29)
[2020-08-15] MEDS: InsuLIN REG 1unit/0.01ml Soln (100units/ml) SC SCH ×5 (00:08→23:30)
[2020-08-15] MEDS: MIDAZOLAM DRIP 50 mg/50mL 50 ML IV SCH (02:30)
[2020-08-15] MEDS: PHENYLEPHRINE IV 250 ML IV SCH ×3 (02:30→17:06)
[2020-08-15] MEDS: EPINEPHrine HCL 250 ML IV SCH (02:30)
[2020-08-15] MEDS: DOPamine 1600MCG/ML D5W 250 ML IV SCH (02:30)
[2020-08-15] MEDS: fentaNYL Drip 2500mCg/250mlNS 250 ML IV SCH ×2 (02:30→08:00)
[2020-08-15 04:38] LABS: Hemoglobin 14.3 g/dL (12.2-16.2); Mean Corpuscular Hgb Conc. 32.4 g/dL (32.0-36.0); Mean Corpuscular Volume 92.5 fL (80.0-100.0); Platelet Count (auto) 48 10^3/uL (140-450); Red Blood Cells 4.76 10^6/uL (4.0-5.20); Red Cell Distribution Width 13.9 % (11.8-14.3); White Blood Cell 14.9 10^3/uL (4.4-10.8)
[2020-08-15 04:43] LABS: Basophils % (manual) 0 (0.0-2.0); Blast Cells 0; Eosinophils % (manual) 0 (0-7); Metamyelocytes % 0; Myelocytes % 0; Promyelocytes % 0; Reactive Lymphocytes 0
[2020-08-15 04:46] LABS: Potassium 3.8 mmol/L (3.5-5.1)
[2020-08-15 04:53] LABS: Albumin 1.6 g/dL (3.4-5.0); BUN/Creatinine Ratio 49.6; Bilirubin, Total 1.2 mg/dL (0.2-1.0); Calcium 7.7 mg/dL (8.5-10.1); Total Protein 4.1 g/dL (6.4-8.2)
[2020-08-15] MEDS: NOREPINEPHRINE 8 MG/250ML KIT 250 ML IV SCH ×2 (05:32→16:00)
[2020-08-15] MEDS: PROPOFOL 100 ML IV SCH (05:32)
[2020-08-15] MEDS: SOD CHL 0.45% 1,000 ML IV SCH ×2 (05:33→17:38)
[2020-08-15 05:42] LABS: Band Neutrophils % (manual) 12; Lymphocytes % (manual) 2 (10.0-50.0); Monocytes % (manual) 1 (0-12)
[2020-08-15] MEDS: METOCLOPRAMIDE HCL 5MG/ml INJ 2ml VIAL IV SCH ×3 (06:07→22:37)
[2020-08-15] MEDS: metroNIDAZOLE 500MG/100ML 100 ML IV SCH ×3 (06:07→22:36)
[2020-08-15 09:34] LABS: Magnesium 2.1 mg/dL (1.6-2.6); Phosphorus 5.3 mg/dL (2.5-4.90)
[2020-08-15] MEDS: MEROPENEM 500MG IVPB 50 ML IV SCH ×2 (10:29→22:36)
[2020-08-15] MEDS: PANTOPRAZOLE 40 MG/10 ML VIAL INJ IV SCH ×2 (10:29→22:36)
[2020-08-15] MEDS: SODIUM CHLOR 0.9% PF (SALINE LOCK) 10ML VIAL/SYR IV SCH ×2 (10:29→22:38)
[2020-08-15] MEDS ORDERED: SODIUM CHLORIDE 0.9% 500 ML IV ONE (17:30)
[2020-08-15] MEDS ORDERED: FUROSEMIDE 20 MG/2 ML VIAL IV ONE (17:30)
[2020-08-15] MEDS ORDERED: FUROSEMIDE 20 MG/2 ML VIAL ONE (17:36)
[2020-08-15] MEDS ORDERED: TPN PER PHARMACY IV NR ×8 (20:00)
[2020-08-15] MEDS: ENOXAPARIN SOD 40 MG/0.4 ML SYRINGE SC SCH (22:00)
[2020-08-16] VITALS (28 sets, daily range): BP systolic 57–123; BP diastolic 18–69
[2020-08-16] MEDS: PROPOFOL 100 ML IV SCH (02:30)
[2020-08-16] MEDS: NOREPINEPHRINE 8 MG/250ML KIT 250 ML IV SCH (02:30)
[2020-08-16] MEDS: DOPamine 1600MCG/ML D5W 250 ML IV SCH (02:30)
[2020-08-16] MEDS: fentaNYL Drip 2500mCg/250mlNS 250 ML IV SCH (02:30)
[2020-08-16] MEDS: MIDAZOLAM DRIP 50 mg/50mL 50 ML IV SCH (02:30)
[2020-08-16] MEDS: EPINEPHrine HCL 250 ML IV SCH (02:30)
[2020-08-16] MEDS: PHENYLEPHRINE IV 250 ML IV SCH (03:30)
[2020-08-16] MEDS: METOCLOPRAMIDE HCL 5MG/ml INJ 2ml VIAL IV SCH (04:27)
[2020-08-16] MEDS: metroNIDAZOLE 500MG/100ML 100 ML IV SCH (04:27)
[2020-08-16] MEDS: InsuLIN REG 1unit/0.01ml Soln (100units/ml) SC SCH (04:28)
[2020-08-16] MEDS: ACCU-CHEK COMFORT CURVE STRIP VI SCH (04:28)
[2020-08-16] MEDS ORDERED: PHENYLEPHRINE HCL 10 MG/ML VL ONE (08:15)
[2020-08-16] MEDS ORDERED: PHENYLEPHRINE INJ 40 MG in SODIUM CHL 0.9% 246 ML IV SCH (10:00)
[2020-08-16] MEDS: SODIUM CHLOR 0.9% PF (SALINE LOCK) 10ML VIAL/SYR IV SCH (10:00)
[2020-08-16] MEDS: PANTOPRAZOLE 40 MG/10 ML VIAL INJ IV SCH (11:29)
[2020-08-16] MEDS: MEROPENEM 500MG IVPB 50 ML IV SCH (11:29)
[2020-08-16] MEDS ORDERED: MORPHINE SULFATE 4 MG/ML SYR/VIAL IV PRN (14:00)
[2020-08-16] MEDS ORDERED: LORazepam 2MG/ML-1ML VIAL IV PRN (14:00)
[2020-08-16] MEDS ORDERED: MORPHINE SULF INJ 2 MG/ML SYRINGE 1ML ONE (14:21)
[2020-08-16] MEDS ORDERED: LORazepam 2MG/ML-1ML VIAL ONE (14:21)
== END 2020-08-16 17:00 | DRG 871 ==
LOC: ER 13:36 → TELE 16:25 → TELE-CENTR 20:57 → ICU WEST 08-15 02:50
PROVIDERS: ADMIT Hospitalist; ATTEND Internal Medicine Cardiovascular Disease
PROC: 0DB68ZX Excision of Stomach, Via Natural or Artificial Opening Endoscopic, Diagnostic (ICD-10-PCS; 2020-08-07)
PROC: 0F9430Z Drainage of Gallbladder with Drainage Device, Percutaneous Approach (ICD-10-PCS; principal; 2020-08-10)
PROC: 02HV33Z Insertion of Infusion Device into Superior Vena Cava, Percutaneous Approach (ICD-10-PCS; 2020-08-10)
PROC: B548ZZA Ultrasonography of Superior Vena Cava, Guidance (ICD-10-PCS; 2020-08-10)
PROC: 02HV33Z Insertion of Infusion Device into Superior Vena Cava, Percutaneous Approach (ICD-10-PCS; 2020-08-12)
PROC: B548ZZA Ultrasonography of Superior Vena Cava, Guidance (ICD-10-PCS; 2020-08-12)
PROC: 30233R1 Transfusion of Nonautologous Platelets into Peripheral Vein, Percutaneous Approach (ICD-10-PCS; 2020-08-13)
PROC: 5A12012 Performance of Cardiac Output, Single, Manual (ICD-10-PCS; 2020-08-15)
PROC: 5A1945Z Respiratory Ventilation, 24-96 Consecutive Hours (ICD-10-PCS; 2020-08-15)
PROC: 0BH17EZ Insertion of Endotracheal Airway into Trachea, Via Natural or Artificial Opening (ICD-10-PCS; 2020-08-15)
DX: A41.9 Sepsis, unspecified organism (principal); K75.0 Abscess of liver; N17.0 Acute kidney failure with tubular necrosis; K65.9 Peritonitis, unspecified; R65.21 Severe sepsis with septic shock; E43 Unspecified severe protein-calorie malnutrition; J18.9 Pneumonia, unspecified organism; K65.1 Peritoneal abscess; K82.A2 Perforation of gallbladder in cholecystitis; I16.9 Hypertensive crisis, unspecified; J90 Pleural effusion, not elsewhere classified; Z68.1 Body mass index [BMI] 19.9 or less, adult; J44.0 Chronic obstructive pulmonary disease with (acute) lower respiratory infection; K80.42 Calculus of bile duct with acute cholecystitis without obstruction; K25.9 Gastric ulcer, unspecified as acute or chronic, without hemorrhage or perforation; K21.9 Gastro-esophageal reflux disease without esophagitis; K31.84 Gastroparesis; K52.9 Noninfective gastroenteritis and colitis, unspecified; E87.6 Hypokalemia; K29.70 Gastritis, unspecified, without bleeding; N18.31 Chronic kidney disease, stage 3a; E11.22 Type 2 diabetes mellitus with diabetic chronic kidney disease; I12.9 Hypertensive chronic kidney disease with stage 1 through stage 4 chronic kidney disease, or unspecified chronic kidney disease; K41.90 Unilateral femoral hernia, without obstruction or gangrene, not specified as recurrent; M06.9 Rheumatoid arthritis, unspecified; Z53.9 Procedure and treatment not carried out, unspecified reason; M81.0 Age-related osteoporosis without current pathological fracture; Z20.822 Contact with and (suspected) exposure to COVID-19; I48.91 Unspecified atrial fibrillation; E11.43 Type 2 diabetes mellitus with diabetic autonomic (poly)neuropathy; E78.5 Hyperlipidemia, unspecified; F03.90 Unspecified dementia, unspecified severity, without behavioral disturbance, psychotic disturbance, mood disturbance, and anxiety; Z66 Do not resuscitate; D69.6 Thrombocytopenia, unspecified; I25.10 Atherosclerotic heart disease of native coronary artery without angina pectoris; I25.2 Old myocardial infarction; Z80.0 Family history of malignant neoplasm of digestive organs; Z82.3 Family history of stroke; Z82.49 Family history of ischemic heart disease and other diseases of the circulatory system; Z88.0 Allergy status to penicillin; Z88.8 Allergy status to other drugs, medicaments and biological substances; I46.9 Cardiac arrest, cause unspecified
CPT/HCPCS: 10022; 36415; 36569; 36600; 43239; 71045; 71275; 74150; 74176; 74181; 76705; 76942; 77012; 78226; 80053; 80061; 80307; 81001; 82040; 82805; 82962; 83036; 83605; 83690; 83735; 84100; 84478; 84484; 85007; 85025; 85027; 85610; 85730; 86850; 86900; 86901; 87040; 87070; 87081; 87086; 87205; 87426; 92950; 93005; 94002; 94003; 96361; 96365; 96375; C1729; C9113; G0378; J0171; J1815; J1956; J2001; J2185; J2250; J2405; J2704; J3480; J3490; J7060